=== PATIENT | male | born 1950 | race Caucasian/White ===

== ENCOUNTER 2018-05-08 14:30 | Outpatient (RCR) | payer MEDICARE, BC, SELFPAY ==
--- NOTE | 2018-04-08 14:00 | PTTR_ITS ---
DATE: 04/08/18 SUBJECTIVE: Felix states he has been working on his breathing, thinks he has it under good control. He had complete pain relief in L LE after last seen, but returned to baseline the next day Manual therapy: (74087s0). Bilateral prolonged hip flexor stretching in sidelying positions, L unilateral chest mobilization, prolonged SLR to 50 degrees, L figure 4 stretch with minimal motion achieved before reproducing pain in the L buttock and L supine twist reaching about 45-50 degrees. In R sidelying, complete long roll mobilization grade 4 oscillation, but due to patient's size, it is difficult to perform productive mobilization. with hips and knees at 90/90 complete leg lowering and gapping of the L side. UPA's throughout bilateral lumbar segments grade 4++ allowing for pain alleviation, no peripheral symptoms, STM throughout the L sciatic notch, piriformis, extensor fascia rolo. Neuromuscular Re-education 63826 x1: Diaphragmatic breathing x4 mins, verbal cueing. Hook lying TRA isometric, remarkable verbal and tactile cues required with attempt of progression into glut recruitment, again requiring significant amount of cues, but patient eventually able to get this without over recruitment of rectus abdominals. In standing position: Complete isometric cocontraction of deep neck flexors, lower traps, intrinsics and gluts to encourage proper posture. Patient initially attempts GH extension to achieve lower trap activation. I have him place his hands to anterior thighs to limit his habit of doing this. Therapeutic procedures ([id number]). Prone UE/LE Supermans x10 each extremity, posterior pelvic tilting via glut recruitment following mild rectus abdominal recruitment x20. Cueing throughout for proper movement pattern. Direct treatment time: 60 mins Total treatment time: 60 mins A: Felix has improved his diaphragmatic breathing, certainly has poor body awareness of intrinsics. With cueing, he is able to eventually get a handle on this. I think the more we do this repetitively, and work on his neuro re-ed treatments, he will do this with more ease. Positive response to manual therapy , but not long lasting-it is early in rehab, but I do anticipate negative turner apprentice relief eventually. P: Continue per POC. JH/dl
--- NOTE | 2018-04-10 14:40 | PTTR_ITS ---
DATE: 04/10/18 OBJECTIVE: Co Treatment with PT Celeste Marin Therapeutic procedures (10720p9). * X Provided skilled instruction in proper exercise performance: Pt completed core stabilization ther ex, glute strengthening, and scapular stabilization ther ex as per flow sheet. Pt did require mod tactile and vc's for correction of his posture and mechanics Direct treatment time: 35 Total treatment time: 35
--- NOTE | 2018-04-10 15:48 | PTTR_ITS ---
DATE: 04/10/18 SUBJECTIVE: Felix states that he continues to note improvements, and decreased UE sciatica. It does remain episodic, but not as intense. This morning he noted that he was able to lean down and put his sock on without difficulty. Also noted improved ability to roll around in bed compared to prior days. OBJECTIVE: Manual therapy: (70409b7). Complete (L) prolonged SLR and mulligan SLR, sciatic nerve flossing and SLR mid line cross for sciatic nerve floss. (L) unilateral knee to chest,supine twist and figure 4 stretching for sciatic notch stretch. (R) side lying complete deep tissue work through (L) Sciatic notch, sacral border, glute med and piriformis. In prone, complete unilateral PAs through all lumbar and lower thoracic segments at grade 4++. He is then seen by Vilma Dasilva PTA for therapeutic exercise, intrinsic strengthening per my direction see her note. Direct treatment time: 30 minutes Total treatment time: 30 minutes
--- NOTE | 2018-04-14 12:29 | PTTR_ITS ---
DATE: 04/14/18 SUBJECTIVE: Herb reporting that he has noted a few times pain when ascending stairs leading with the (L) LE and doing this reciprocally really without much pain. He has had moments today where he has been walking one his feet for some time and noted that he hasn't had any discomfort. He feels that he is improving because of these observations. Pain intensity is reduced through the (L) buttock and he is much more aware of his posture. OBJECTIVE: Manual therapy: (33914n0). Prolonged (L) SLR and mulligan SLR oscillations x 10 with mid line cross SLR, sciatic nerve floss x 10. (L) figure 4 and supine twist stretching, (R) side lying log roll mobilization grade 4 oscillations as well as gapping of the (L) lumbar spine with hips and knees at 90/90 position. STM throughout the (L) sacral border and piriformis completing deep trigger points and IASTM down regulation through piriformis and (L) lumbo thoracic paraspinals. He was then seen by Vilma Dasilva PTA for strengthening per my direction see her note for specifics. Direct treatment time: 30 minutes Total treatment time: 30 minutes
--- NOTE | 2018-04-14 15:49 | PTTR_ITS ---
DATE: 04/14/18 OBJECTIVE: Co treatment with PT Celeste Marin Therapeutic procedures ([id number]). * X Provided skilled instruction in proper exercise performance: Pt completed core stabilization ther ex, glute strengthening, and scapular stabilization ther ex. Pt was able to tolerate a slight increase in his program today please see flow sheet for specifics. Direct treatment time: 30 Total treatment time: 30
--- NOTE | 2018-04-16 15:08 | PTTR_ITS ---
DATE: 04/16/18 SUBJECTIVE: Continues to make progress session to session. He reports more centralization of pain today, with discomfort more surrounding the lateral L trochanter, with almost complete resolution of leg pain. Only has leg discomfort when bending forward to put his shoe on. OBJECTIVE: KX applied to all codes N/A Manual therapy: (17120b1). To L LE: Mulligan SLR Prolonged midline and cross body SLR Figure 4 and supine twist stretching In R sidelying complete log roll mobilization grade 4, and prolonged lateral fascia stretch into L trunk rotation UPA's grade 4++ bilateral lumbar segments. He was then seen by Vilma Dasilva PTA for completion of treatment per my direction. Direct treatment time: 20 minutes Total treatment time: 20 minutes
--- NOTE | 2018-04-16 15:46 | PTTR_ITS ---
DATE: 04/16/18 OBJECTIVE: Co Treatment with PT Celeste Marin Manual therapy: (76117p6). Pt while in side lying received DTM and trigger point release techniques throughout the TFL and glute med region. Therapeutic procedures (70342w4). * X Provided skilled instruction in proper exercise performance: Pt completed core stabilization ther ex, glute strengthening, LE strengthening, and functional sit to stands. Pt completed a portion of his session with the wellness with Isaiah Myers Direct treatment time: 30 Total treatment time: 45
--- NOTE | 2018-04-20 14:00 | PTTR_ITS ---
DATE: 04/20/18 SUBJECTIVE: Herb stating he is at least 60% (+) improved since initiating PT. His pain no longer goes into the L leg, but more isolated to L lateral hip. This weekend he ambulated up about 34 steps and did not have discomfort until he got to the top and he was able to do this reciprocally. He continues to have pain when lying on his L side, but now is able to roll over in bed to his R side without difficulty. After leaving his PT appts, he has more muscle soreness due to his exercises that we demand of him vs actual pain. OBJECTIVE: Manual therapy: (30520r0). L LE Mulligan SLR decompression followed by prolonged SLR stretching and sciatic nerve flossing x10. L unilateral knee to chest, figure 4 and supine twist mobilization, R sidelying log roll decompression to L lumbar spine, grade 4 oscillations as well as 90/90 leg dropping over the edge of the plinth for decompression. STM throughout the L TFL where most of amount of adhesions and tension was appreciated to the attachment of the posterior hip capsule. Therapeutic procedures (06151r1). * x See flow sheet: * x Provided skilled instruction in proper exercise performance: intrinsic movement performance and progression of exercises. Direct treatment time: 60 mins Total treatment time: 60 mins JH/dl
--- NOTE | 2018-04-22 11:29 | PTTR_ITS ---
DATE: 04/22/18 SUBJECTIVE: Herb states he has essentially had no left sided sciatica or hip pain since last being seen until yesterday evening. Otherwise, he continues to state he is doing well. OBJECTIVE: Manual therapy: (53236a8). Completed left Mulligan SLR, prolonged SLR, left unilateral knee to chest, figure 4 in supine twist stretching, right side lying log roll mobilization for decompression of the left sided lumbar spine in 90/90 leg drop for decompression of the left sided lumber spine. UPAs to the left and right sided lumbar spine at a Grade 4 + +, but with remarkable limitations noted. STM throughout the right TFL where the he the most tension appreciated. Direct treatment time: 30 minutes Total treatment time: 30 minutes Therapeutic exercises were deferred today due to patient's scheduled restrictions. XIMENA/yovani
--- NOTE | 2018-04-28 14:30 | PTTR_ITS ---
DATE: 04/28/18 SUBJECTIVE: Felix stating he has been having no leg pain. His back overall has been feeling very good, unless he stands after prolonged sitting, he has some buttock discomfort which he relates more to muscle pain from his exercises. Once he takes 2-3 steps, this dissipates. Manual therapy: (12972x0). Prolonged L SLR with Mulligan distraction, cross body SLR, sciatic nerve floss x10. Figure 4 and supine twist mobilization with remarkable improvement in mobility compared to prior sessions without pain. R sidelying lumbar facet gapping via leg drop at 90/90 position as well as log roll mobilization,UPA's all lumbar segments. Therapeutic procedures ([id number]). * x See flow sheet: * x Provided skilled instruction in proper exercise performance: glut and intrinsic core activation, modifications made throughout to attend to patient's lack of upper body extension and deep neck flexor activation. He continues with this with Vilma Dasilva PTA (see her note for specifics) Direct treatment time: 30 mins Total treatment time: 30 mins A: Felix's pain has dissipated, however he continues to demonstrate remarkable amount of posterior swing and longitudinal swing fascial weakness. He can barely lift either arm off the table into full shoulder flexion or lift his head off a towel roll. Exercises were modified to allow for best activation in muscle structures as possible. I am hopeful as we get his posterior muscles working better, will get him to stand up better putting less strain through his back. Of course, this is going to take some time due to the remarkable amount of weakness that he has. P: Proceed 2x a week with primary focus of Therex at this point with posterior strengthening and intrinsic concentration. XIMENA/jaylon
--- NOTE | 2018-04-28 15:24 | PTTR_ITS ---
DATE: 04/28/18 OBJECTIVE: Co Treatment with PT Celeste Marin Therapeutic procedures ([id number]). * X Provided skilled instruction in proper exercise performance: Pt completed core stabilization ther ex, glute strengthening, scapular stabilization, and strengthening to the lower trap. Direct treatment time: 20 Total treatment time: 20
--- NOTE | 2018-04-30 14:30 | PTTR_ITS ---
DATE: 04/30/18 SUBJECTIVE: Herb stating that he has been having some slight increase in discomfort from his lateral L hip, down lateral L thigh. He feels not having soft tissue mobilization performed last visit may have contributed to this, otherwise he has been much more aware of his posture at all times. He really does struggle to try and stand up straight and he is now acknowledging how weak he is and he is surprised at how weak he is. He is denying any back pain and while he is experiencing some L leg pain, it is not nearly as severe or frequent as it once was. Manual therapy: ([id number]). L prolonged SLR with Mulligan distraction, cross body SLR, figure 4 and supine twist mobilization. L sciatic nerve floss x10. Extensive STM down L lateral thigh fascia utilizing instrument for down regulation as well as down regulation into L sacral musculature and sacral musculature and sacral border with deep tissue work through the sciatic notch. He is then seen by Vilma Dasilva PTA for Therex per my instruction. (see her note for specifics) Direct treatment time: 30 mins Total treatment time: 30 mins XIMENA/dl
--- NOTE | 2018-04-30 15:00 | PTTR_ITS ---
DATE: 04/30/18 Co-treat with ARNIE Hager (see her note) Therapeutic procedures ([id number]). consisting of scap stabilization, Lower trap activation as well as core stabilization, glut strengthening activities per flow sheet. Direct treatment time: 20 mins Total treatment time: 20 mins /dl
--- NOTE | 2018-05-06 08:50 | PTTR_ITS ---
DATE: 05/06/18 SUBJECTIVE: Walked around [place] fair over the weekend, really without any pain. Complained of general fatigue, but that was expected. He has some discomfort local to the L buttock, but no isolated back pain or L LE discomfort. 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 He is aware of his posture, and core weakness, and is finding it challenging and tiring to remain in good posture and core use. OBJECTIVE: KX applied to all codes N/A Manual therapy: (39409s5). Prolonged L SLR, and cross SLR. Sciatic nerve floss L LE x 10 L U KTC, supine twist, and figure 4 stretch STM L sciatic notch Therapeutic procedures (69165b0). Observe patient talking with me alternating between the two compensatory static stances: 1. Knees bent, to rock upper body back. 2. Forward bent at the hips and shoulder protrusion/forward head. He remains in each position gto about 10 seconds, and then essentially rocks into the next position. This leads me into the followin.Reviewed standing intrinsic activation. Hands on anterior thighs to avoid shoulder extension. Verbal cues and manual facilitation for TrA, glute, lower trap, and deep neck flexor activation. 10 sec holds x 10. 2. Stand facing wall, arms overhead into shoulder flexion. Arm lift off x 10. Leg extension x 10. These two exercises require a great deal of instruction and cueing for proper muscle facilitation. He tend continues [facility] Vilma Dasilva PTA for ther ex per my direction, see her note. Direct treatment time: 30 minutes Total treatment time: 30 minutes Assessment: Felix is much improved in regards to his comfort, now dealing with some residual L buttock pain. He presents with soft tissue dysfunction through the sciatic notch, and even some tension up through the lumbar paraspinals, and iliac brim today. This soft tissue impairment is likely secondary to his lumbar nerve root compromise, and arthritic condition. Anticipate this will continue to improve as we continue decompression L lumbar spine and manipulation surrounding soft tissue via mobilization and STM. His strength remains very poor , particularly in regard to his intrinsic and postural stability. Without great attention paid to his lack of intrinsic and spinal stability, his lumbar spine and associated structures will continue to suffer trauma and strain. While he has improved [facility] manual treatments, it will only be short lived without continued efforts focused on his stabilization, particularly of the posterior and longitudinal fascial slings, where he demonstrates greatest deficit. Plan: STM L sciatic notch, and L lumbar decompression mobilization techniques. Progress intrinsic stabilization, with focus as discussed above, per patient tolerance. 2x/week.
--- NOTE | 2018-05-06 15:41 | PTTR_ITS ---
DATE: 05/05/18 OBJECTIVE: Co Treatment with PT Celeste Marin Therapeutic procedures ([id number]). * X Provided skilled instruction in proper exercise performance: Pt completed core stabilization ther ex, glute strengthening, scapular stabilization ther ex, and strengthening to the lower trap. Pt was able to tolerate a slight increase in his program today. Pt requires tactile and vc's for correction of his posture and mechanics. Direct treatment time: 30 Total treatment time: 30
--- NOTE | 2018-05-08 15:25 | PTTR_ITS ---
DATE: 05/08/18 OBJECTIVE: Manual therapy: (67123w2). Pt received DTM and trigger point release techniques throughout the glute med and piriformis while in the side lying and prone positions. Therapeutic procedures ([id number]). * X Provided skilled instruction in proper exercise performance: Pt completed core stabilization ther ex, glute strengthening, scapular stabilization, and cervical retraction exercises as per flow sheet. Pt was able to tolerate a slight increase in his program today. Pt did require mod vc's and tactile cueing for correction of his posture and mechanics. Pt also utilized the mirror for his own visual cueing. Direct treatment time: 45 Total treatment time: 45
== END 2018-05-08 23:59 | disposition home or self-care (01) ==
LOC: PT 14:30
PROVIDERS: PCP Family Medicine; Referring Provider Family Medicine; Visit Provider Family Medicine
DX: S76.012D Strain of muscle, fascia and tendon of left hip, subsequent encounter (principal)
CPT/HCPCS: 97110; 97112; 97140

== ENCOUNTER → 2018-07-02 10:09 | Outpatient (BNVA) | payer MEDICARE, BC, SELFPAY | PROVIDERS: PCP Family Medicine; Referring Provider Family Medicine; Visit Provider Orthopaedic Surgery | DX: M70.62 Trochanteric bursitis, left hip (principal) | CPT/HCPCS: 20610; 99201; 99214; J1040 ==

== ENCOUNTER 2018-10-06 16:17 | Outpatient (CLI) | payer MEDICARE, BC, SELFPAY ==
[2018-10-06 16:46] LABS: Abs Immature Grans 0.02 k/cumm (0.0-0.09); Absolute Basophil Count 0.02 k/cumm (0.0-0.2); Absolute Eosinophil Count 0.11 k/cumm (0.0-0.7); Absolute Lymphocyte Count 1.82 k/cumm (1.2-3.4); Absolute Monocyte Count 0.53 k/cumm (0.11-0.7); Absolute Neutrophil Count 3.57 k/cumm (1.2-6.7); Basophils % 0.3; Eosinophils % 1.8; HCT 43.8 % (40.0-50.0); Immature Grans % 0.3; Mean Corp. HGB Concentration 34.2 g/dL (32.0-36.0); Mean Corpuscular Hemoglobin 32.8 pg (27.0-33.0); Mean Corpuscular Volume 95.8 fL (80-95); Monocytes % 8.7; Neutrophils % 58.9; Platelet Count 173 x1000/uL (130-400); RBC 4.57 m/cumm (4.50-6.00); RBC Distribution Width 12.6 % (11.8-14.1); White Blood Cell Count 6.07 k/cumm (4.4-10.8)
[2018-10-06 17:01] LABS: ALT 42 U/L (12-78); AST 25 U/L (15-37); Albumin 3.6 g/dL (3.4-5.0); Alkaline Phosphatase 122 U/L (46-116); Anion Gap 10.1 mmol/L (3-11); BUN 23 mg/dL (7-18); Bilirubin, Total 0.4 mg/dL (0.2-1.0); CO2 25.9 mmol/L (21.0-32.0); CREATININE 0.91 mg/dL (0.70-1.30); Calcium 8.8 mg/dL (8.5-10.1); Chloride 105 mmol/L (98-107); Glucose 106 mg/dL (70-100); LDH 208 U/L (85-227); Potassium 4.1 mmol/L (3.5-5.1); Sodium 141 mmol/L (136-145); Total Protein 7.4 g/dL (6.4-8.2)
== END 2018-10-06 16:37 ==
PROVIDERS: PCP Family Medicine; Visit Provider Internal Medicine Hematology & Oncology
DX: C82.21 Follicular lymphoma grade III, unspecified, lymph nodes of head, face, and neck (principal)
CPT/HCPCS: 36415; 80053; 83615; 85025

== ENCOUNTER 2018-10-28 12:02 | Outpatient (CLI) | payer MEDICARE, BC, SELFPAY ==
[2018-10-28 19:42] LABS: ALT 41 U/L (12-78); AST 29 U/L (15-37); Albumin 3.4 g/dL (3.4-5.0); Alkaline Phosphatase 120 U/L (46-116); Anion Gap 8.4 mmol/L (3-11); BUN 17 mg/dL (7-18); Bilirubin, Total 0.4 mg/dL (0.2-1.0); CO2 26.6 mmol/L (21.0-32.0); CREATININE 0.93 mg/dL (0.70-1.30); Calcium 8.9 mg/dL (8.5-10.1); Chloride 105 mmol/L (98-107); Glucose 103 mg/dL (70-100); Sodium 140 mmol/L (136-145); TSH (W/Ref FT4) 1.13 uIU/mL (0.358-3.74); Total Protein 6.6 g/dL (6.4-8.2); Vitamin B12 715 pg/mL (193-986)
== END 2018-10-28 12:22 ==
PROVIDERS: PCP Family Medicine; Visit Provider Family Medicine
DX: C85.90 Non-Hodgkin lymphoma, unspecified, unspecified site (principal); R20.2 Paresthesia of skin; M79.642 Pain in left hand
CPT/HCPCS: 36415; 80053; 80061; 83721; 73130; 82607; 83036; 84443

== ENCOUNTER 2018-10-28 13:39 | Outpatient (CLI) | payer MEDICARE, BC, SELFPAY ==
--- NOTE | 2018-10-28 15:42 | DI.RAD_ITS ---
SYMPTOM/DIAGNOSIS: LT HAND PAIN, M79.642 LEFT HAND: Three views. There are mild degenerative changes seen of the left hand with varying degrees of joint space narrowing and periarticular spurring in the interphalangeal joints of the hand. The metacarpal phalangeal joints appear fairly well maintained. No acute fracture, dislocation, lytic or sclerotic lesion is seen. A marker was placed on the soft tissues on the dorsum of the hand. No underlying osseous abnormality is seen. IMPRESSION: Osteoarthritis of the left hand.
== END 2018-10-28 13:59 ==
PROVIDERS: PCP Family Medicine; Visit Provider Family Medicine
DX: M79.642 Pain in left hand (principal); M19.042 Primary osteoarthritis, left hand
CPT/HCPCS: 73130

== ENCOUNTER 2019-04-08 07:15 | Outpatient (CLI) | payer MEDICARE, BC, SELFPAY ==
[2019-04-08 16:26] LABS: Abs Immature Grans 0.01 k/cumm (0.0-0.09); Absolute Basophil Count 0.02 k/cumm (0.0-0.2); Absolute Eosinophil Count 0.15 k/cumm (0.0-0.7); Absolute Lymphocyte Count 2.07 k/cumm (1.2-3.4); Absolute Monocyte Count 0.54 k/cumm (0.11-0.7); Absolute Neutrophil Count 2.98 k/cumm (1.2-6.7); Basophils % 0.3; Eosinophils % 2.6; HCT 39.9 % (40.0-50.0); HGB 13.8 g/dL (13.5-17.5); Immature Grans % 0.2; Lymphocytes % 35.9; Mean Corp. HGB Concentration 34.6 g/dL (32.0-36.0); Mean Corpuscular Hemoglobin 32.3 pg (27.0-33.0); Mean Corpuscular Volume 93.4 fL (80-95); Mean Platelet Volume 9.3 fL (8.0-11.0); Monocytes % 9.4; Neutrophils % 51.6; Platelet Count 170 x1000/uL (130-400); RBC 4.27 m/cumm (4.50-6.00); RBC Distribution Width 12.4 % (11.8-14.1); White Blood Cell Count 5.77 k/cumm (4.4-10.8)
[2019-04-08 18:01] LABS: ALT 45 U/L (12-78); AST 24 U/L (15-37); Albumin 3.6 g/dL (3.4-5.0); Alkaline Phosphatase 119 U/L (46-116); Anion Gap 8.8 mmol/L (3-11); BUN 16 mg/dL (7-18); Bilirubin, Total 0.4 mg/dL (0.2-1.0); CO2 25.2 mmol/L (21.0-32.0); CREATININE 0.95 mg/dL (0.70-1.30); Calcium 8.9 mg/dL (8.5-10.1); Chloride 108 mmol/L (98-107); Glucose 103 mg/dL (70-100); LDH 233 U/L (85-227); Potassium 3.6 mmol/L (3.5-5.1); Sodium 142 mmol/L (136-145); Total Protein 6.8 g/dL (6.4-8.2)
== END 2019-04-08 07:35 ==
PROVIDERS: PCP Family Medicine; Visit Provider Internal Medicine Hematology & Oncology
DX: C82.20 Follicular lymphoma grade III, unspecified, unspecified site (principal)
CPT/HCPCS: 36415; 80053; 83615; 85025

== ENCOUNTER 2019-04-26 16:27 | Outpatient (REF) | payer MEDICARE, BC, SELFPAY ==
[2019-04-26 19:09] LABS: Bilirubin Negative (Negative); Blood Small (Negative); Clarity Cloudy (Clear); Glucose Negative (Negative); Ketones Negative (Negative); Leukocyte Esterase Large (Negative); Nitrite Negative (Negative); Urobilinogen 0.2 EU/dL (Up TO 0.2)
[2019-04-26 19:21] LABS: C & S Indicated? Yes; WBC >50 HPF (0-5)
== END 2019-04-26 16:47 ==
LOC: LBN 16:27
PROVIDERS: PCP Family Medicine; Visit Provider Family Medicine
DX: R35.0 Frequency of micturition (principal)
CPT/HCPCS: 87077; 81003; 81015; 87086; 87186

== ENCOUNTER 2019-06-07 18:43 | Outpatient (REF) | payer MEDICARE, BC, SELFPAY ==
[2019-06-07 19:13] LABS: Bilirubin Negative (Negative); Blood Trace-intact (Negative); Clarity Cloudy (Clear); Glucose Negative (Negative); Ketones Negative (Negative); Leukocyte Esterase Large (Negative); Nitrite Positive (Negative); Specific Gravity 1.015 (1.005-1.025); Urobilinogen 0.2 EU/dL (Up TO 0.2); pH 6.5 (5-8)
[2019-06-07 19:29] LABS: Bacteria Many HPF (Negative); Epithelial Cells Rare HPF (Negative); Other Cells Rare Renal (Negative); WBC >50 HPF (0-5)
[2019-06-07 19:30] LABS: C & S Indicated? Yes; Casts Negative LPF (Negative); Crystals Negative HPF (Negative); Mucus Negative (Negative)
== END 2019-06-07 19:03 ==
LOC: LBN 18:43
PROVIDERS: PCP Family Medicine; Visit Provider Family Medicine
DX: R35.0 Frequency of micturition (principal); R82.90 Unspecified abnormal findings in urine
CPT/HCPCS: 87077; 81003; 81015; 87086; 87186

== ENCOUNTER 2019-06-14 10:32 | Outpatient (CLI) | payer MEDICARE, BC, SELFPAY ==
[2019-06-14 16:15] LABS: Abs Immature Grans 0.02 k/cumm (0.0-0.09); Absolute Basophil Count 0.02 k/cumm (0.0-0.2); Absolute Eosinophil Count 0.11 k/cumm (0.0-0.7); Absolute Monocyte Count 0.53 k/cumm (0.11-0.7); Absolute Neutrophil Count 3.81 k/cumm (1.2-6.7); Basophils % 0.3; Eosinophils % 1.7; HCT 39.6 % (40.0-50.0); HGB 13.2 g/dL (13.5-17.5); Immature Grans % 0.3; Lymphocytes % 28.6; Mean Corp. HGB Concentration 33.3 g/dL (32.0-36.0); Mean Corpuscular Hemoglobin 31.9 pg (27.0-33.0); Mean Corpuscular Volume 95.7 fL (80-95); Monocytes % 8.4; Neutrophils % 60.7; Platelet Count 210 x1000/uL (130-400); RBC 4.14 m/cumm (4.50-6.00); RBC Distribution Width 12.9 % (11.8-14.1); White Blood Cell Count 6.29 k/cumm (4.4-10.8)
[2019-06-14 18:05] LABS: ALT 40 U/L (16-63); AST 27 U/L (15-37); Albumin 3.6 g/dL (3.4-5.0); Alkaline Phosphatase 110 U/L (46-116); Anion Gap 8.1 mmol/L (3-11); BUN 17 mg/dL (7-18); Bilirubin, Total 0.4 mg/dL (0.2-1.0); CO2 27.9 mmol/L (21.0-32.0); CREATININE 1.01 mg/dL (0.70-1.30); Calcium 8.3 mg/dL (8.5-10.1); Chloride 104 mmol/L (98-107); Glucose 94 mg/dL (70-100); LDH 229 U/L (85-227); Sodium 140 mmol/L (136-145)
== END 2019-06-14 10:52 ==
PROVIDERS: PCP Family Medicine; Visit Provider Internal Medicine Hematology & Oncology
DX: C82.20 Follicular lymphoma grade III, unspecified, unspecified site (principal)
CPT/HCPCS: 36415; 80053; 83615; 85025

== ENCOUNTER 2019-06-17 13:16 | Outpatient (CLI) | payer MEDICARE, BC, SELFPAY ==
[2019-06-17 16:35] LABS: Reticulocyte 1.9 % (0.5-2.4)
[2019-06-17 17:27] LABS: Iron 80 ug/dL (50-175); Total Iron Binding Capacity 273 ug/dL (250-450); Transferrin Sat 29 % (20-55)
[2019-06-17 17:55] LABS: Ferritin 373 ng/mL (8-388); Vitamin B12 659 pg/mL (193-986)
== END 2019-06-17 13:36 ==
PROVIDERS: PCP Family Medicine; Visit Provider Internal Medicine Hematology & Oncology
DX: R53.83 Other fatigue (principal); D53.9 Nutritional anemia, unspecified
CPT/HCPCS: 36415; 82607; 82728; 82746; 83540; 83550; 84443; 85045

== ENCOUNTER 2019-08-11 10:47 | Outpatient (CLI) | payer MEDICARE, BC, SELFPAY | END 2019-08-11 11:07 | PROVIDERS: PCP Family Medicine; Visit Provider Urology | DX: R97.20 Elevated prostate specific antigen [PSA] (principal); N39.0 Urinary tract infection, site not specified | CPT/HCPCS: 36415; 84154 ==

== ENCOUNTER 2019-08-24 10:36 | Outpatient (CLI) | payer MEDICARE, BC, SELFPAY ==
[2019-08-24 12:11] LABS: Abs Immature Grans 0.01 k/cumm (0.0-0.09); Absolute Basophil Count 0.02 k/cumm (0.0-0.2); Absolute Eosinophil Count 0.07 k/cumm (0.0-0.7); Absolute Lymphocyte Count 1.58 k/cumm (1.2-3.4); Absolute Monocyte Count 0.56 k/cumm (0.11-0.7); Absolute Neutrophil Count 3.78 k/cumm (1.2-6.7); Basophils % 0.3; Eosinophils % 1.2; HCT 40.8 % (40.0-50.0); HGB 13.7 g/dL (13.5-17.5); Immature Grans % 0.2; Lymphocytes % 26.2; Mean Corp. HGB Concentration 33.6 g/dL (32.0-36.0); Mean Corpuscular Hemoglobin 32.1 pg (27.0-33.0); Mean Corpuscular Volume 95.6 fL (80-95); Mean Platelet Volume 9.7 fL (8.0-11.0); Monocytes % 9.3; Neutrophils % 62.8; Platelet Count 183 x1000/uL (130-400); RBC 4.27 m/cumm (4.50-6.00); RBC Distribution Width 12.9 % (11.8-14.1); White Blood Cell Count 6.02 k/cumm (4.4-10.8)
[2019-08-24 12:13] LABS: ALT 48 U/L (16-63); AST 34 U/L (15-37); Albumin 3.4 g/dL (3.4-5.0); Alkaline Phosphatase 101 U/L (46-116); Anion Gap 8.8 mmol/L (3-11); BUN 19 mg/dL (7-18); Bilirubin, Total 0.7 mg/dL (0.2-1.0); CO2 26.2 mmol/L (21.0-32.0); CREATININE 0.86 mg/dL (0.70-1.30); Calcium 8.6 mg/dL (8.5-10.1); Chloride 106 mmol/L (98-107); Glucose 106 mg/dL (74-106); LDH 234 U/L (85-227); Potassium 3.7 mmol/L (3.5-5.1); Sodium 141 mmol/L (136-145); Total Protein 6.9 g/dL (6.4-8.2)
== END 2019-08-24 10:56 ==
PROVIDERS: PCP Family Medicine; Visit Provider Internal Medicine Hematology & Oncology
DX: C82.30 Follicular lymphoma grade IIIa, unspecified site (principal); D53.9 Nutritional anemia, unspecified
CPT/HCPCS: 36415; 80053; 83615; 85025

== ENCOUNTER 2019-09-16 02:18 | Outpatient (CLI) | payer MEDICARE, BC, SELFPAY ==
--- NOTE | 2019-09-16 07:30 | DI.US_ITS ---
APPROVED REPORT EXAM: Comprehensive 2D, Doppler, and color-flow Echocardiogram Patient Location: Out-Patient Horser Up: Radha Hilario RDCS (AE) Rhythm: NSR Indications: shortness of breath R06.02 Conclusion Left Ventricle : The left ventricle is normal size. Left ventricular systolic function is normal. Mil d to moderate left ventricular hypertrophy. There is normal LV segmental wall motion. The left ventr icular diastolic function is normal. LVEF is estimated to be 65-70%. Right Ventricle : The right ventricle is normal size. The right ventricular systolic function appears normal. Atria : The left atrium size is normal. The right atrium size is normal. Aortic Valve : The Aortic valve is sclerotic. There is no aortic valvular stenosis. No aortic regurgi tation is present. Mitral Valve : Mitral valve leaflets are mildly thickened. Trace mitral regurgitation. No evidence of mitral valve stenosis. Tricuspid Valve : The tricuspid valve is not well visualized. Trace to mild tricuspid regurgitation. Great Vessels : The ascending aorta size is dilated 3.8cm). IVC is normal in size and collapses >50% with inspiration. Estimated RVSP is 30-35 mmHg. There is no prior echocardiogram available for comparison. Wall motion Left Ventricle The left ventricle is normal size. Left ventricular systolic function is normal. Mild to moderate lef t ventricular hypertrophy. There is normal LV segmental wall motion. The left ventricular diastolic f unction is normal. LVEF is estimated to be 65-70%. Right Ventricle The right ventricle is normal size. The right ventricular systolic function appears normal. Atria The left atrium size is normal. The right atrium size is normal. Aortic Valve The Aortic valve is sclerotic. There is no aortic valvular stenosis. No aortic regurgitation is prese nt. Mitral Valve Mitral valve leaflets are mildly thickened. No evidence of mitral valve stenosis. Trace mitral regurg itation. Tricuspid Valve The tricuspid valve is not well visualized. Trace to mild tricuspid regurgitation. Great Vessels The aortic root is normal in size. The ascending aorta size is dilated 3.8cm). IVC is normal in size and collapses >50% with inspiration. Estimated RVSP is 30-35 mmHg. Pericardium Prominent anterior epicardial fat pad is present. 2D Dimensions IVSd 1.25 cm M: 0.6-1.2 LV EDV A2C 66.40 mL PWd 1.25 cm M: 0.6 - 1.2 LV EDV A4C 93.30 mL LVDd 4.60 cm M: 4.2 - 5.8 LA Volume Index A2C 17.62 mL/m2 LVDs 2.80 cm M: 2.5 - 4.0 LA Volume Index A4C 22.17 mL/m2 Aortic Root 3.70 cm M: 3.1 - 3.7 LA Volume Index Biplane 19.92 mL/m2 RA Area A4C 12.82 cm2 LA Area A4C 18.32 cm2 LVOT 2.25 cm (M/F) 1.5-2.5 LA Area A2C 16.20 cm2 Ascending Aorta 3.79 cm M: 2.6 - 3.4 EF AP4 63.02 % LVEF (Teich) 68.49 % EF AP2 71.84 % LVEF (Greene's) 67.33 % M: 52 - 72 EF BP 67.33 % LV Volume 57.43 mL M: 62 - 150 LV Volume Index 24.75 mL/m2 M: 34 - 74 FS 38.20 % LV Diastology E/A Ratio 0.8 MED E' 0.05 (>0.07 m/s) LV E/e MED 11.05 (<14) LAT E' 0.10 (>0.1 m/s) LV E/e LAT 5.50 (<14) Pulm Vein s 0.50 m/s PV S/D Ratio 1.22 Pulm Vein d 0.41 m/s Pulm Vein a 0.36 m/s A-A Duration 151.94 msec Aortic Valve LVOT Area 4.08 cm2 LVOT Vmax 0.94 m/s LVOT Mean Hector. 0.70 m/s LVOT Peak Gr. 3.5 mmHg LVOT Mean Gr. 2.1 mmHg AoV Area/ BSA (Vmax) 0.87 cm2/m2 LVOT VTI 0.167 m AoV Vmax 1.91 (0.5-1.3 m/s) SATHISH Mean Hector. Index 0.89 cm2/m2 AoV Mean Hector. 1.37 m/s AoV Peak Grad 14.5 mmHg AoV Mean Grad 8.3 (<5 mmHg) AoV VTI 0.355 (0.18-0.25 m) AoV Area VTI 2.06 (2.5-4.5 cm2) AoV Area/ BSA (VTI) 0.89 cm/m2 Mitral Valve MV E Max Hector. 0.55 (0.4-1.3 m/s) MV A Velocity 0.65 (0.4-1.3 m/s) E/A Ratio 0.81 MV Decel. Time 269.30 (160-240 msec) MV PHT 78.10 msec MVA PHT 2.80 cm2 Pulmonary Valve PV Peak Velocity 1.12 (0.5-1.5 m/s) Tricuspid Valve TR P. Velocity 2.74 m/s TV Regurg Vmax 2.74 m/s RAP Estimate 3.00 mmHg RVSP 32.98 mmHg TR P. Gradient 29.95 mmHg
== END 2019-09-16 02:38 ==
PROVIDERS: PCP Family Medicine; Visit Provider Family Medicine
DX: R06.02 Shortness of breath (principal); I34.8 Other nonrheumatic mitral valve disorders; I35.8 Other nonrheumatic aortic valve disorders
CPT/HCPCS: 93306

== ENCOUNTER 2019-09-24 02:17 | Outpatient (CLI) | payer MEDICARE, BC, SELFPAY ==
[2019-09-24] MEDS: Albuterol HFA 18 GM 200 PUFF INH IH (13:53)
[2019-09-24] MEDS: Inhaler, Assist Device 1 EACH MC (13:53)
--- NOTE | 2019-09-24 14:47 | PFT_ITS ---
PULMONARY FUNCTION TEST REPORT DATE OF SERVICE: September 24, 2019 REQUESTING PROVIDER: Olga Curtis M.D. Spirometry shows no evidence of obstructive airways disease, no bronchodilator response. Lung volumes show no evidence of restriction. Diffusion capacity borderline mildly reduced, which is normal when corrected to alveolar volume. This also represents a slightly suboptimal patient effort. Airways resistance normal. IMPRESSION: Overall likely normal pulmonary function study. The borderline mildly reduced diffusion capacity represents a suboptimal patient effort. This is normal when corrected to alveolar volume. When this study was compared to previous ones from 12/15/07 and 11/01/10, the patient has an overall 300 cc decline in FVC, but considering that in 2010 there was an improvement, from that time on there?s a 500 cc decline in FVC. In FEV1 there is a gradual decline with a total of 410 cc's. Clinical correlation therefore recommended. GABRIEL/kandace D/
== END 2019-09-24 02:37 ==
PROVIDERS: PCP Family Medicine; Visit Provider Family Medicine
DX: R06.02 Shortness of breath (principal)
CPT/HCPCS: 94060; 94150; 94726; 94729

== ENCOUNTER 2019-10-14 18:30 | Outpatient (REF) | payer MEDICARE, BC, SELFPAY ==
[2019-10-14 19:12] LABS: Bilirubin Negative (Negative); Blood Trace-intact (Negative); Clarity Cloudy (Clear); Glucose Negative (Negative); Ketones Negative (Negative); Leukocyte Esterase Large (Negative); Nitrite Positive (Negative); Urobilinogen 0.2 EU/dL (Up TO 0.2)
[2019-10-14 19:26] LABS: Bacteria Many HPF (Negative); C & S Indicated? Yes; Casts Negative LPF (Negative); Crystals Negative HPF (Negative); Epithelial Cells Negative HPF (Negative); Mucus Negative (Negative); RBC Negative HPF (0-2); WBC >50 HPF (0-5)
== END 2019-10-14 18:50 ==
LOC: LBN 18:30
PROVIDERS: PCP Family Medicine; Visit Provider Family Medicine
DX: R35.0 Frequency of micturition (principal)
CPT/HCPCS: 87077; 81003; 81015; 87086; 87186

== ENCOUNTER 2019-12-15 13:38 | Outpatient (REF) | payer MEDICARE, BC, SELFPAY ==
[2019-12-15 13:57] LABS: Bilirubin Negative (Negative); Blood Negative (Negative); Clarity Cloudy (Clear); Glucose Negative (Negative); Ketones Negative (Negative); Leukocyte Esterase Large (Negative); Nitrite Negative (Negative); Specific Gravity 1.025 (1.005-1.025); Urobilinogen 0.2 EU/dL (Up TO 0.2)
[2019-12-15 14:21] LABS: Bacteria Many HPF (Negative); C & S Indicated? Yes; WBC >50 HPF (0-5)
== END 2019-12-15 13:58 ==
LOC: LBN 13:38
PROVIDERS: PCP Family Medicine; Visit Provider Family Medicine
DX: N39.0 Urinary tract infection, site not specified (principal)
CPT/HCPCS: 87077; 81003; 81015; 87086; 87186

== ENCOUNTER 2020-01-29 10:51 | Outpatient (REF) | payer MEDICARE, BC, SELFPAY ==
[2020-01-29 11:12] LABS: Bilirubin Negative (Negative); Blood Trace-intact (Negative); Clarity Sl Cloudy (Clear); Glucose Negative (Negative); Ketones Negative (Negative); Leukocyte Esterase Moderate (Negative); Nitrite Positive (Negative); Specific Gravity >= 1.030 (1.005-1.025); Urobilinogen 0.2 EU/dL (Up TO 0.2); pH 5.5 (5-8)
[2020-01-29 11:24] LABS: Bacteria Moderate HPF (Negative); C & S Indicated? Yes; Casts Negative LPF (Negative); Crystals Negative HPF (Negative); Epithelial Cells Few HPF (Negative); Mucus Trace (Negative); Other Cells Negative (Negative); WBC >50 HPF (0-5)
== END 2020-01-29 11:11 ==
LOC: LBN 10:51
PROVIDERS: PCP Family Medicine; Visit Provider Family Medicine
DX: N39.0 Urinary tract infection, site not specified (principal); R30.0 Dysuria
CPT/HCPCS: 87077; 81003; 81015; 87086; 87186

== ENCOUNTER 2020-02-09 21:37 | Outpatient (REF) | payer MEDICARE, BC, SELFPAY ==
[2020-02-09 21:06] LABS: Bilirubin Negative (Negative); Blood Trace-intact (Negative); Clarity Sl Cloudy (Clear); Glucose Negative (Negative); Ketones Negative (Negative); Leukocyte Esterase Moderate (Negative); Nitrite Negative (Negative); Specific Gravity 1.025 (1.005-1.025); Urobilinogen 0.2 EU/dL (Up TO 0.2)
[2020-02-09 21:16] LABS: C & S Indicated? Yes
== END 2020-02-09 21:57 ==
LOC: LBN 21:37
PROVIDERS: PCP Family Medicine; Visit Provider Family Medicine
DX: R30.0 Dysuria (principal)
CPT/HCPCS: 87077; 81003; 81015; 87086; 87186

== ENCOUNTER 2020-04-28 14:29 | Outpatient (CLI) | payer MEDICARE, BC, SELFPAY ==
[2020-04-28 14:44] LABS: Abs Immature Grans 0.01 10^3/uL (0.0-0.06); Absolute Basophil Count 0.02 10^3/uL (0.0-0.2); Absolute Eosinophil Count 0.16 10^3/uL (0.0-0.7); Absolute Lymphocyte Count 1.82 10^3/uL (1.2-3.4); Absolute Monocyte Count 0.56 10^3/uL (0.1-0.8); Absolute Neutrophil Count 3.13 10^3/uL (1.2-6.7); Basophils % 0.4; Eosinophils % 2.8; HCT 40.3 % (40.0-50.0); HGB 13.9 g/dL (13.5-17.5); Immature Grans % 0.2; Lymphocytes % 31.9; MCH 32.8 pg (27.0-33.0); MCHC 34.5 % (32.0-36.0); MPV 9.5 fL (8.0-11.0); Monocytes % 9.8; Neutrophils % 54.9; Nucleated RBC 0 %; Platelet Count 159 10^3/uL (130-400); RBC 4.24 10^6/uL (4.36-5.78); RDW 12.4 % (11.8-14.1); RDW-SD 42.8 fL
[2020-04-28 15:04] LABS: ALT 44 U/L (16-63); AST 25 U/L (15-37); Albumin 3.3 g/dL (3.4-5.0); Alkaline Phosphatase 92 U/L (46-116); Anion Gap 9.3 mmol/L (3-11); BUN 16 mg/dL (7-18); Bilirubin, Total 0.6 mg/dL (0.2-1.0); CO2 24.7 mmol/L (21.0-32.0); CREATININE 0.92 mg/dL (0.70-1.30); Calcium 8.4 mg/dL (8.5-10.1); Chloride 104 mmol/L (98-107); Glucose 129 mg/dL (74-106); LDH 199 U/L (85-227); Potassium 3.7 mmol/L (3.5-5.1); Sodium 138 mmol/L (136-145); Total Protein 6.7 g/dL (6.4-8.2)
== END 2020-04-28 14:49 ==
PROVIDERS: PCP Family Medicine; Visit Provider Internal Medicine Hematology & Oncology
DX: C82.20 Follicular lymphoma grade III, unspecified, unspecified site (principal)
CPT/HCPCS: 36415; 80053; 83615; 85025

== ENCOUNTER 2020-05-01 21:15 | Outpatient (REF) | payer MEDICARE, BC, SELFPAY ==
[2020-05-01 22:23] LABS: Bilirubin Negative (Negative); Blood Negative (Negative); Clarity Sl Cloudy (Clear); Glucose Negative (Negative); Ketones Negative (Negative); Leukocyte Esterase Negative (Negative); Nitrite Positive (Negative); Specific Gravity >= 1.030 (1.005-1.025); Urobilinogen 0.2 EU/dL (Up TO 0.2)
[2020-05-01 22:38] LABS: Bacteria Many HPF (Negative); C & S Indicated? Yes; Casts Negative LPF (Negative); Crystals Negative HPF (Negative); Epithelial Cells Rare HPF (Negative); Mucus Negative (Negative); Other Cells Negative (Negative)
== END 2020-05-01 21:35 ==
LOC: LBN 21:15
PROVIDERS: PCP Family Medicine; Visit Provider Family Medicine
DX: R35.0 Frequency of micturition (principal)
CPT/HCPCS: 87077; 81003; 81015; 87086; 87186

== ENCOUNTER 2020-05-05 03:43 | Outpatient (CLI) | payer MEDICARE, BC, SELFPAY ==
[2020-05-05 08:16] LABS: Calculated LDL 136 mg/dL (<100); Cholesterol 191 mg/dL (<200); HDL Cholesterol 42 mg/dL (40-60); TSH (W/Ref FT4) 1.09 uIU/mL (0.36-3.74); Triglyceride 68 mg/dL (<150)
[2020-05-05 08:49] LABS: NT-proBNP 81 pg/mL (<300)
== END 2020-05-05 04:03 ==
PROVIDERS: PCP Family Medicine; Visit Provider Family Medicine
DX: E11.9 Type 2 diabetes mellitus without complications (principal); I50.9 Heart failure, unspecified
CPT/HCPCS: 36415; 80061; 83036; 83880; 84443

== ENCOUNTER 2020-05-08 01:42 | Outpatient (CLI) | payer MEDICARE, BC, SELFPAY ==
--- NOTE | 2020-05-08 08:00 | DI.NM_ITS ---
APPROVED REPORT Exam: Pharmacologic Patient Location: Out-Patient Room/Bed: Stress Nurse: Sole Anne RN BMI: 42.37 Baseline Rhythm: Sinus Rhythm Comment: 1st degree AV block Indications: SOB. Weight gain. CHF. Medical History Medical History: CHF, Obstructive sleep apnea, Obesity , HTN, Hyperlipidemia Cardiac Medications: Aspirin. Magnesium. Losartan. Furosemide., Allergies: Ciprofloxacin. Cephalexin. Sulfamethoxazole. Trimethoprim. Lisinopril. Simvastatin. Cardiac Risk Factors: HTN, Hyperlipidemia, pre diabetes. Exercise History: Physically active Physical Disabilities: Hips, Legs Lung Sounds: Clear to auscultation Heart Sounds: Regular Stress Test Details Test: Pharmacologic stress testing performed using 0.4 mg of regadenoson per 5 mL given IV over 10 s econds. Nuclear Acquisition: Rest Tc-99m/Stress Tc-99m 1 day Rest Isotope: Tc-99m Sestamibi. Dose: 11.9 Date: 05/08/2020 Injection Time: 1040 Stress Isotope: Tc-99m Sestamibi. Dose: 35.0 Date: 05/08/2020 Injection Time: 1215 HR Resting HR Supine: 70 bpm Max Heart Rate (APMHR): 151.973336 bpm Target HR (85% APMHR): 128.953168 bpm Max HR Achieved: 81 bpm % of APMHR: 53.64 Recovery HR: 77 bpm HR response to stress: Normal HR response to stress BP Resting BP Supine: 144/88 mmHg Max BP: 144/88 mmHg Recovery BP: 140/72 mmHg BP response to stress: Normal blood pressure response to stress. ECG Resting ECst degree AV block Stress ECst degree AV block Recovery ECst degree AV block Clinical Stress Symptoms: Dyspnea 30 seconds post lexiscan injection, subsided by 4 minutes post lexiscan inje ction Stress ECG Conclusion 1. Resting electrocardiogram showed first-degree AV block, otherwise unremarkable 2. This was a pharmacologic myocardial perfusion imaging study using regadenoson 3. Blunted heart rate and blood pressure response to pharmacologic stress 4. Electrocardiographically the test was nondiagnostic due to inadequate heart rate. The patient ach ieved 53% of predicted heart rate for age 5. There were no dysrhythmias Stress Test Summary STAGE HR BP Symptoms NOTES Supine 70 144/88 1 min post Lexiscan injection 81 134/80 3 min post Lexiscan injection 83 130/82 6 min post Lexiscan injection 77 140/72 MPI Conclusion Possible inferior ischemia EF 47% Radiologist Interpretation Radiologist Interpretation by: Edgar Mcclure MD Interpretation Date/Time: 05/08/2020 15:43:19
[2020-05-08] MEDS: Regadenoson 0.4 MG/5 ML SYR IVP (12:48)
== END 2020-05-08 02:02 ==
PROVIDERS: PCP Family Medicine; Visit Provider Family Medicine
DX: I50.9 Heart failure, unspecified (principal); R06.02 Shortness of breath; R63.5 Abnormal weight gain; I10 Essential (primary) hypertension; E78.5 Hyperlipidemia, unspecified; R73.03 Prediabetes; R94.39 Abnormal result of other cardiovascular function study
CPT/HCPCS: 78452; 93016; 93018; 93017; J2785

== ENCOUNTER 2020-06-07 22:36 | Outpatient (REF) | payer MEDICARE, BC, SELFPAY ==
[2020-06-07 22:16] LABS: Bilirubin Negative (Negative); Blood Trace-intact (Negative); Clarity Clear (Clear); Glucose Negative (Negative); Ketones Negative (Negative); Leukocyte Esterase Large (Negative); Nitrite Positive (Negative); Specific Gravity 1.025 (1.005-1.025); Urobilinogen 0.2 EU/dL (Up TO 0.2); pH 6.5 (5-8)
[2020-06-07 22:20] LABS: Bacteria Moderate HPF (Negative); Crystals Negative HPF (Negative); Epithelial Cells Few HPF (Negative); Mucus Negative (Negative); WBC >50 HPF (0-5)
[2020-06-07 22:21] LABS: C & S Indicated? Yes; Casts Negative LPF (Negative)
== END 2020-06-07 22:56 ==
LOC: LBN 22:36
PROVIDERS: PCP Family Medicine; Visit Provider Family Medicine
DX: R68.83 Chills (without fever) (principal)
CPT/HCPCS: 87077; 81003; 81015; 87086; 87186

== ENCOUNTER → 2020-06-08 12:31 | Outpatient (BNVA) | payer MEDICARE, BC, SELFPAY | PROVIDERS: PCP Family Medicine; Referring Provider Family Medicine; Visit Provider Internal Medicine Cardiovascular Disease | DX: R06.02 Shortness of breath (principal); I10 Essential (primary) hypertension | CPT/HCPCS: 99204; 99215 ==

== ENCOUNTER → 2020-10-26 13:39 | Outpatient (BNVA) | payer MEDICARE, BC, SELFPAY | PROVIDERS: PCP Family Medicine; Referring Provider Family Medicine; Visit Provider Internal Medicine Cardiovascular Disease | DX: I50.9 Heart failure, unspecified (principal); R06.02 Shortness of breath | CPT/HCPCS: 99214; 99213 ==

== ENCOUNTER 2020-12-25 03:28 | Outpatient (CLI) | payer MEDICARE, BC, SELFPAY ==
[2020-12-25 09:08] LABS: ALT 49 U/L (16-63); AST 29 U/L (15-37); Albumin 3.6 g/dL (3.4-5.0); Alkaline Phosphatase 108 U/L (46-116); Anion Gap 5.2 mmol/L (3-11); BUN 16 mg/dL (7-18); Bilirubin, Total 0.7 mg/dL (0.2-1.0); CO2 28.8 mmol/L (21.0-32.0); Calcium 8.4 mg/dL (8.5-10.1); Chloride 108 mmol/L (98-107); Glucose 113 mg/dL (74-106); Potassium 4.3 mmol/L (3.5-5.1); Sodium 142 mmol/L (136-145); Total Protein 6.7 g/dL (6.4-8.2)
== END 2020-12-25 03:29 | disposition home or self-care (01) ==
LOC: LBO 03:28
PROVIDERS: PCP Family Medicine; Visit Provider Family Medicine
DX: R06.02 Shortness of breath (principal); E11.9 Type 2 diabetes mellitus without complications
CPT/HCPCS: 36415; 80053; 83036

== ENCOUNTER 2021-01-11 18:12 | Outpatient (REF) | payer MEDICARE, BC, SELFPAY ==
[2021-01-11 21:30] LABS: Bilirubin Negative (Negative); Blood Negative (Negative); Clarity Clear (Clear); Glucose Negative (Negative); Ketones Negative (Negative); Leukocyte Esterase Negative (Negative); Nitrite Negative (Negative); Urobilinogen 0.2 EU/dL (Up TO 0.2); pH 6.5 (5-8)
== END 2021-01-11 18:13 | disposition home or self-care (01) ==
LOC: LBN 18:12
PROVIDERS: PCP Family Medicine; Visit Provider Family Medicine
DX: R30.0 Dysuria (principal)
CPT/HCPCS: 81003

== ENCOUNTER 2021-03-22 03:40 | Outpatient (CLI) | payer MEDICARE, BC, SELFPAY ==
[2021-03-22 16:57] LABS: Abs Immature Grans 0.02 10^3/uL (0.0-0.06); Absolute Basophil Count 0.05 10^3/uL (0.0-0.2); Absolute Eosinophil Count 0.16 10^3/uL (0.0-0.7); Absolute Monocyte Count 0.59 10^3/uL (0.1-0.8); Absolute Neutrophil Count 3.78 10^3/uL (1.2-6.7); Basophils % 0.8; Eosinophils % 2.4; HCT 40.2 % (40.0-50.0); Immature Grans % 0.3; Lymphocytes % 30.3; MCHC 34.8 % (32.0-36.0); MCV 94.8 fL (80-95); MPV 9.5 fL (8.0-11.0); Monocytes % 8.9; Neutrophils % 57.3; Nucleated RBC 0 %; Platelet Count 184 10^3/uL (130-400); RBC 4.24 10^6/uL (4.36-5.78); RDW 12.3 % (11.8-14.1); RDW-SD 42.9 fL
[2021-03-22 17:06] LABS: ALT 66 U/L (16-63); AST 39 U/L (15-37); Albumin 3.5 g/dL (3.4-5.0); Alkaline Phosphatase 103 U/L (46-116); Anion Gap 10.2 mmol/L (3-11); BUN 16 mg/dL (7-18); Bilirubin, Total 0.5 mg/dL (0.2-1.0); CO2 24.8 mmol/L (21.0-32.0); CREATININE 1.1 mg/dL (0.70-1.30); Calcium 8.8 mg/dL (8.5-10.1); Chloride 106 mmol/L (98-107); Glucose 119 mg/dL (74-106); Potassium 3.5 mmol/L (3.5-5.1); Sodium 141 mmol/L (136-145); Total Protein 7.2 g/dL (6.4-8.2)
== END 2021-03-22 03:41 | disposition home or self-care (01) ==
LOC: LBO 03:40
PROVIDERS: PCP Family Medicine; Visit Provider Nurse Practitioner Adult Health
DX: C82.21 Follicular lymphoma grade III, unspecified, lymph nodes of head, face, and neck (principal)
CPT/HCPCS: 36415; 80053; 85025

== ENCOUNTER → 2021-04-24 14:14 | Outpatient (BNVA) | payer MEDICARE, BC, SELFPAY | PROVIDERS: PCP Family Medicine; Referring Provider Family Medicine; Visit Provider Internal Medicine Cardiovascular Disease | DX: R06.02 Shortness of breath (principal); Z98.890 Other specified postprocedural states | CPT/HCPCS: 99214; 99213 ==

== ENCOUNTER 2021-07-05 02:04 | Outpatient (CLI) | payer MEDICARE, BC, SELFPAY ==
[2021-07-05 16:39] LABS: Hemoglobin A1C 6.2 % (<5.7)
[2021-07-05 17:42] LABS: TSH (W/Ref FT4) 1.13 uIU/mL (0.36-3.74); Vitamin B12 697 pg/mL (193-986)
== END 2021-07-05 02:05 | disposition home or self-care (01) ==
LOC: LBO 02:04
PROVIDERS: PCP Family Medicine; Visit Provider Family Medicine
DX: I10 Essential (primary) hypertension (principal); E11.9 Type 2 diabetes mellitus without complications; R20.2 Paresthesia of skin; G62.9 Polyneuropathy, unspecified
CPT/HCPCS: 36415; 82607; 83036; 84443

== ENCOUNTER → 2021-07-23 13:40 | Outpatient (BNVA) | payer MEDICARE, BC, SELFPAY | PROVIDERS: PCP Family Medicine; Visit Provider Internal Medicine Cardiovascular Disease | DX: R06.02 Shortness of breath (principal); U09.9 Post COVID-19 condition, unspecified | CPT/HCPCS: 99213 ==

== ENCOUNTER → 2021-09-17 12:54 | Outpatient (BNVA) | payer MEDICARE, BC, SELFPAY | PROVIDERS: PCP Family Medicine; Referring Provider Family Medicine; Visit Provider Nurse Practitioner Gerontology | DX: N39.0 Urinary tract infection, site not specified (principal); N31.2 Flaccid neuropathic bladder, not elsewhere classified; I11.0 Hypertensive heart disease with heart failure; I50.9 Heart failure, unspecified; Z98.890 Other specified postprocedural states | CPT/HCPCS: 81003; 99214 ==

== ENCOUNTER 2021-09-24 00:40 | Outpatient (CLI) | payer MEDICARE, BC, SELFPAY ==
[2021-09-24 14:18] LABS: Abs Immature Grans 0.01 10^3/uL (0.0-0.06); Absolute Basophil Count 0.03 10^3/uL (0.0-0.2); Absolute Eosinophil Count 0.09 10^3/uL (0.0-0.7); Absolute Monocyte Count 0.49 10^3/uL (0.1-0.8); Absolute Neutrophil Count 4.11 10^3/uL (1.2-6.7); Basophils % 0.4; Eosinophils % 1.3; HGB 14.9 g/dL (13.5-17.5); Immature Grans % 0.1; Lymphocytes % 30.7; MCH 31.9 pg (27.0-33.0); MCHC 33.9 % (32.0-36.0); MCV 94.2 fL (80-95); MPV 9.6 fL (8.0-11.0); Monocytes % 7.2; Neutrophils % 60.3; Nucleated RBC 0 %; Platelet Count 155 10^3/uL (130-400); RBC 4.67 10^6/uL (4.36-5.78); RDW-SD 41.8 fL; WBC 6.83 10^3/uL (4.4-10.8)
[2021-09-24] MEDS: Breeza Beverage 473 ML BTL PO ×2 (14:21→14:22)
[2021-09-24] MEDS: Omnipaque 350 MG/ML 50 ML BTL PO (14:21)
[2021-09-24 14:48] LABS: ALT 40 U/L (16-63); AST 30 U/L (15-37); Albumin 3.5 g/dL (3.4-5.0); Alkaline Phosphatase 93 U/L (46-116); Anion Gap 6.5 mmol/L (3-11); BUN 13 mg/dL (7-18); Bilirubin, Total 0.8 mg/dL (0.2-1.0); CO2 28.5 mmol/L (21.0-32.0); CREATININE 0.9 mg/dL (0.70-1.30); Calcium 8.6 mg/dL (8.5-10.1); Chloride 102 mmol/L (98-107); Glucose 91 mg/dL (74-106); LDH 171 U/L (85-227); Potassium 3.9 mmol/L (3.5-5.1); Sodium 137 mmol/L (136-145); Total Protein 6.9 g/dL (6.4-8.2)
--- NOTE | 2021-09-24 15:06 | DI.CT_ITS ---
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 TECHNIQUE: Imaging Protocol: Axial computed tomography images with coronal and sagittal reformatted images were created and reviewed CONTRAST MATERIAL: Intravenous: Omnipaque 350 Contrast volume:100 ml Oral: yes COMPARISON: CT CHEST ABD PELVIS WITH CONTRAST from 07/15/2017 FINDINGS: CHEST: Tracheobronchial tree: Patent where visualized. Mediastinum and [place]: No dominant adenopathy or fluid collection. Pulmonary parenchyma: No consolidation or dominant measurable mass. Pleura: No effusion or pneumothorax. Lymph nodes: Within normal limits. Aorta: Thoracic portion non-dilated. Tortuous. Sdbc-fi-udyhwuiz atherosclerotic changes. Heart: Normal size. Coronary artery calcifications are seen. Bones: Flowing osteophytes. No lytic or blastic lesions. ABDOMEN: Liver: Lcxz-bl-gknfqrru hepatic steatosis.. No measurable mass. Gallbladder and biliary tract: No radiodense calculus or dilation. Pancreas: Normal density, no abnormal calcifications or inflammatory process. Spleen: Normal. Kidneys: Normal size, contour and axis. No radiodense stones or obstructive uropathy. No masses seen. Cyst upper pole left kidney. Adrenal glands: No masses seen. Aorta: Abdominal portion non-dilated. Vwgu-hc-fzaklkza atherosclerotic changes. Lymph nodes: Within normal limits. Soft tissues: Unremarkable. PELVIS: Bladder: [place] distended. No mass, stone or, gross wall thickening. Bowel: Mild sigmoid diverticulosis. Normal quantity of stool. No obstruction or bowel wall thickeni ng. Peritoneal cavity: No ascites, collection or mesenteric inflammatory response. Bones: Degenerative changes. Reproductive organs: Prostate shows TURP defect.. IMPRESSION: No evidence adenopathy in the abdomen or pelvis. No acute abnormality in the chest abdomen or pelvis .. RADIATION DOSE DELIVERED: 2,952.31mGy.cm Total DLP DATA REPOSITORY: All CT scans at this facility are submitted to the National Radiology Data Registry (NRDR) Dose Index Registry (DIR) with the [employer] (ACR). RADIATION OPTIMIZATION: All CT scans at this facility use at least one of these dose optimization te chniques: automated exposure control; mA and/or kV adjustment per patient size (includes targeted exa ms where dose is matched to clinical indication); or iterative reconstruction.
== END 2021-09-24 01:00 ==
PROVIDERS: Internal Medicine Hematology & Oncology; PCP Family Medicine; Visit Provider Nurse Practitioner Family
DX: C82.30 Follicular lymphoma grade IIIa, unspecified site
CPT/HCPCS: 74177; 80053; 71260; 83615; 85025; Q9967

== ENCOUNTER → 2021-12-17 14:33 | Outpatient (BNVA) | payer MEDICARE, BC, SELFPAY | PROVIDERS: PCP Family Medicine; Referring Provider Family Medicine; Visit Provider Nurse Practitioner Gerontology | DX: N31.2 Flaccid neuropathic bladder, not elsewhere classified (principal); N39.0 Urinary tract infection, site not specified | CPT/HCPCS: 51798; 81003; 99214 ==

== ENCOUNTER → 2021-12-18 13:50 | Outpatient (BNVA) | payer MEDICARE, BC, SELFPAY | PROVIDERS: PCP Family Medicine; Referring Provider Family Medicine; Visit Provider Nurse Practitioner Gerontology | DX: R69 Illness, unspecified (principal) ==

== ENCOUNTER → 2022-01-21 13:39 | Outpatient (BNVA) | payer MEDICARE, BC, SELFPAY | PROVIDERS: PCP Family Medicine; Visit Provider Internal Medicine Cardiovascular Disease | DX: R06.02 Shortness of breath (principal); I10 Essential (primary) hypertension | CPT/HCPCS: 99213 ==

== ENCOUNTER → 2022-04-04 14:59 | Outpatient (BNVA) | payer MEDICARE, BC, SELFPAY | PROVIDERS: PCP Family Medicine; Visit Provider Nurse Practitioner Gerontology | DX: N39.0 Urinary tract infection, site not specified (principal); R31.9 Hematuria, unspecified; N31.2 Flaccid neuropathic bladder, not elsewhere classified | CPT/HCPCS: 51798; 81003; 99214 ==

== ENCOUNTER 2022-04-04 18:34 | Outpatient (REF) | payer MEDICARE, BC, SELFPAY | END 2022-04-04 18:35 | disposition home or self-care (01) | LOC: LBN 18:34 | PROVIDERS: PCP Family Medicine; Visit Provider Nurse Practitioner Gerontology | DX: R31.9 Hematuria, unspecified (principal) | CPT/HCPCS: 87077; 87086; 87186 ==

== ENCOUNTER 2022-04-12 01:44 | Outpatient (CLI) | payer MEDICARE, BC, SELFPAY ==
[2022-04-12 16:13] LABS: Abs Immature Grans 0.02 10^3/uL (0.0-0.06); Absolute Basophil Count 0.04 10^3/uL (0.0-0.2); Absolute Eosinophil Count 0.23 10^3/uL (0.0-0.7); Absolute Lymphocyte Count 2.02 10^3/uL (1.2-3.4); Absolute Monocyte Count 0.54 10^3/uL (0.1-0.8); Absolute Neutrophil Count 4.13 10^3/uL (1.2-6.7); Basophils % 0.6; Eosinophils % 3.3; HGB 14.6 g/dL (13.5-17.5); Immature Grans % 0.3; Lymphocytes % 28.9; MCHC 35.6 % (32.0-36.0); MCV 93 fL (80-95); MPV 9.2 fL (8.0-11.0); Monocytes % 7.7; Neutrophils % 59.2; Platelet Count 187 10^3/uL (130-400); RBC 4.42 10^6/uL (4.36-5.78); RDW 12.1 % (11.8-14.1); RDW-SD 41.7 fL; WBC 6.98 10^3/uL (4.4-10.8)
[2022-04-12 16:31] LABS: ALT 39 U/L (16-63); Albumin 3.6 g/dL (3.4-5.0); Alkaline Phosphatase 107 U/L (46-116); Anion Gap 8.7 mmol/L (3-11); BUN 19 mg/dL (7-18); Bilirubin, Total 0.6 mg/dL (0.2-1.0); CO2 26.3 mmol/L (21.0-32.0); Calcium 8.6 mg/dL (8.5-10.1); Chloride 102 mmol/L (98-107); Glucose 105 mg/dL (74-106); LDH 189 U/L (85-227); Potassium 3.5 mmol/L (3.5-5.1); Sodium 137 mmol/L (136-145); Total Protein 7.1 g/dL (6.4-8.2)
[2022-04-12 17:00] LABS: AST 26 U/L (15-37)
== END 2022-04-12 01:45 | disposition home or self-care (01) ==
LOC: LBO 01:45
PROVIDERS: PCP Family Medicine; Visit Provider Internal Medicine Hematology & Oncology
DX: C82.20 Follicular lymphoma grade III, unspecified, unspecified site (principal)
CPT/HCPCS: 36415; 80053; 83615; 85025

== ENCOUNTER 2022-06-18 18:07 | Outpatient (REF) | payer MEDICARE, BC, SELFPAY ==
[2022-06-18 18:24] LABS: Bilirubin Negative (Negative); Blood Negative (Negative); Clarity Clear (Clear); Glucose Negative (Negative); Ketones Negative (Negative); Leukocyte Esterase Negative (Negative); Nitrite Negative (Negative); Urobilinogen 0.2 EU/dL (Up TO 0.2); pH 6.5 (5-8)
== END 2022-06-18 18:08 | disposition home or self-care (01) ==
LOC: LBN 18:07
PROVIDERS: Urology; PCP Family Medicine; Visit Provider Nurse Practitioner Gerontology
DX: R31.9 Hematuria, unspecified (principal)
CPT/HCPCS: 87077; 81003; 87086; 87186

== ENCOUNTER → 2022-07-02 14:59 | Outpatient (BNVA) | payer MEDICARE, BC, SELFPAY | PROVIDERS: PCP Family Medicine; Referring Provider Family Medicine; Visit Provider Nurse Practitioner Gerontology | DX: R39.89 Other symptoms and signs involving the genitourinary system (principal); Z87.440 Personal history of urinary (tract) infections; N31.2 Flaccid neuropathic bladder, not elsewhere classified | CPT/HCPCS: 51798; 99214 ==

== ENCOUNTER 2022-07-22 08:03 | Outpatient (CLI) | payer MEDICARE, BC, SELFPAY ==
--- NOTE | 2022-07-22 08:00 | RT.EKG_ITS ---
APPROVED REPORT Exam: Resting ECG Reason for Exam: SOB Patient Location: O HR:89 bpm ECG Measurements Heart Rate 89 AXIS SD 260 P -10 QRSd 90 QRS -19 QT 318 T 150 QTc 387 Conclusion Sinus rhythm...normal P axis, V-rate 50- 99 Prolonged SD interval...SD >220, V-rate 50- 90 Borderline left axis deviation...QRS axis (-15,-29) Low voltage, precordial leads...precordial leads <1.0mV Abnormal R-wave progression, early transition...QRS area>0 in V2 Nonspecific T abnormalities, lateral leads...T <-0.10mV, I aVL V5 V6
== END 2022-07-22 08:04 | disposition home or self-care (01) ==
LOC: DI.CARD 08:04
PROVIDERS: PCP Family Medicine; Visit Provider Internal Medicine Cardiovascular Disease
DX: R06.02 Shortness of breath (principal); R94.31 Abnormal electrocardiogram [ECG] [EKG]
CPT/HCPCS: 93010

== ENCOUNTER → 2022-07-22 13:39 | Outpatient (BNVA) | payer MEDICARE, BC, SELFPAY | PROVIDERS: PCP Family Medicine; Referring Provider Family Medicine; Visit Provider Internal Medicine Cardiovascular Disease | DX: R06.02 Shortness of breath (principal) | CPT/HCPCS: 93005; 99213 ==

== ENCOUNTER → 2022-10-02 14:32 | Outpatient (BNVA) | payer MEDICARE, BC, SELFPAY | PROVIDERS: PCP Family Medicine; Referring Provider Family Medicine; Visit Provider Nurse Practitioner Gerontology | DX: Z87.440 Personal history of urinary (tract) infections (principal); N31.2 Flaccid neuropathic bladder, not elsewhere classified | CPT/HCPCS: 36415; 99214 ==

== ENCOUNTER 2022-10-02 16:05 | Outpatient (REF) | payer MEDICARE, BC, SELFPAY ==
[2022-10-03 19:25] LABS: PSA, Screening 0.5 ng/mL (<=6.5)
== END 2022-10-02 16:06 | disposition home or self-care (01) ==
LOC: LBN 16:05
PROVIDERS: PCP Family Medicine; Visit Provider Nurse Practitioner Gerontology
DX: R31.9 Hematuria, unspecified (principal); N31.2 Flaccid neuropathic bladder, not elsewhere classified; R39.89 Other symptoms and signs involving the genitourinary system; Z12.5 Encounter for screening for malignant neoplasm of prostate
CPT/HCPCS: 84153

== ENCOUNTER → 2023-02-17 11:04 | Outpatient (BNVA) | payer MEDICARE, BC, SELFPAY | PROVIDERS: PCP Family Medicine; Visit Provider Internal Medicine Cardiovascular Disease | DX: I10 Essential (primary) hypertension (principal); R06.02 Shortness of breath | CPT/HCPCS: 99213 ==

== ENCOUNTER 2023-02-17 11:15 | Outpatient (REF) | payer MEDICARE, BC, SELFPAY ==
[2023-02-17 11:35] LABS: Bilirubin Negative (Negative); Blood Small (Negative); Clarity Cloudy (Clear); Glucose Negative (Negative); Ketones Negative (Negative); Leukocyte Esterase Large (Negative); Nitrite Negative (Negative); Specific Gravity 1.015 (1.005-1.025); Urobilinogen 0.2 mg/dL (Up to 0.2)
[2023-02-17 11:44] LABS: Bacteria Rare HPF (Negative); C & S Indicated? C&S Done As Ordered; Casts Negative LPF (Negative); Crystals Negative HPF (Negative); Epithelial Cells Few HPF (Negative); Mucus Negative (Negative); RBC 0-2 HPF (0-2); WBC >50 HPF (0-5)
== END 2023-02-17 11:16 | disposition home or self-care (01) ==
LOC: LBN 11:15
PROVIDERS: PCP Family Medicine; Visit Provider Nurse Practitioner Gerontology
DX: R35.0 Frequency of micturition (principal)
CPT/HCPCS: 87077; 81003; 81015; 87086; 87186

== ENCOUNTER 2023-03-04 09:35 | Outpatient (CLI) | payer MEDICARE, BC, SELFPAY ==
[2023-03-04 14:47] LABS: ALT 31 U/L (16-63); AST 22 U/L (15-37); Albumin 3.8 g/dL (3.4-5.0); Alkaline Phosphatase 105 U/L (46-116); Anion Gap 11.1 mmol/L (3-11); BUN 20 mg/dL (7-18); CO2 26.9 mmol/L (21.0-32.0); CREATININE 1.2 mg/dL (0.70-1.30); Calcium 8.9 mg/dL (8.5-10.1); Chloride 104 mmol/L (98-107); Estimated GFR 64.25 (mL/min/1.73m2); Glucose 107 mg/dL (74-106); Sodium 142 mmol/L (136-145); Total Protein 7.6 g/dL (6.4-8.2)
== END 2023-03-04 09:36 | disposition home or self-care (01) ==
LOC: LOS 09:36
PROVIDERS: PCP Family Medicine; Referring Provider Family Medicine; Visit Provider Family Medicine
DX: I11.0 Hypertensive heart disease with heart failure (principal); I50.9 Heart failure, unspecified; E11.9 Type 2 diabetes mellitus without complications
CPT/HCPCS: 36415; 80053

== ENCOUNTER 2023-03-05 02:00 | Outpatient (CLI) | payer MEDICARE, BC, SELFPAY ==
--- NOTE | 2023-03-05 09:29 | DI.RAD_ITS ---
Exam(s) XR FOOT LT COMPLETE EXAM: XR FOOT LT COMPLETE CLINICAL HISTORY: b/l foot pain,m79.671,m79.672. TECHNIQUE: 2D digital imaging was performed of the left foot. Three images were obtained. AP, obli que and lateral views were obtained. COMPARISON: No exams were available for comparison FINDINGS: BONES: No acute fracture is present. No bony destructive lesion is seen. There is an enthesophyte at the posterior calcaneus. There is a plantar calcaneal spur. JOINTS: No dislocation present. Mild degenerative changes are seen in the foot. SOFT TISSUE: Atherosclerosis is present. IMPRESSION: Mild degenerative changes of the foot. DATA REPOSITORY: RADIATION DOSE DELIVERED:
--- NOTE | 2023-03-05 09:30 | DI.RAD_ITS ---
Exam(s) XR FOOT RT COMPLETE EXAM: XR FOOT RT COMPLETE CLINICAL HISTORY: b/l foot pain,m79.671,m79.672. TECHNIQUE: 2D digital imaging was performed of the right foot. Three images were obtained. AP, obl ique and lateral views were obtained. COMPARISON: No exams were available for comparison FINDINGS: BONES: No acute fracture is present. No bony destructive lesion is seen. Small plantar calcaneal spur . There is an enthesophyte at the posterior calcaneus. JOINTS: No dislocation present. There are mild degenerative changes seen in the foot. SOFT TISSUE: Atherosclerosis is present. IMPRESSION: No acute abnormality. Mild degenerative changes seen in the foot. DATA REPOSITORY: RADIATION DOSE DELIVERED:
== END 2023-03-05 02:20 ==
LOC: DI 02:00
PROVIDERS: PCP Family Medicine; Visit Provider Family Medicine
DX: M79.671 Pain in right foot (principal); M79.672 Pain in left foot
CPT/HCPCS: 73630

== ENCOUNTER 2023-03-18 18:37 | Outpatient (REF) | payer MEDICARE, BC, SELFPAY ==
[2023-03-18 16:48] LABS: Bilirubin Negative (Negative); Blood Negative (Negative); Clarity Clear (Clear); Glucose Negative (Negative); Ketones Negative (Negative); Leukocyte Esterase Negative (Negative); Nitrite Negative (Negative); Specific Gravity 1.015 (1.005-1.025); Urobilinogen 0.2 mg/dL (Up to 0.2)
== END 2023-03-18 18:38 | disposition home or self-care (01) ==
LOC: LBN 18:37
PROVIDERS: PCP Family Medicine; Visit Provider Urology
DX: N39.0 Urinary tract infection, site not specified (principal); R31.9 Hematuria, unspecified
CPT/HCPCS: 87077; 81003; 87086; 87186

== ENCOUNTER → 2023-04-02 14:25 | Outpatient (BNVA) | payer MEDICARE, BC, SELFPAY | PROVIDERS: PCP Family Medicine; Visit Provider Nurse Practitioner Gerontology | DX: R39.89 Other symptoms and signs involving the genitourinary system (principal); Z87.440 Personal history of urinary (tract) infections; N31.2 Flaccid neuropathic bladder, not elsewhere classified | CPT/HCPCS: 99213 ==

== ENCOUNTER 2023-07-17 16:05 | Outpatient (REF) | payer MEDICARE, BC, SELFPAY ==
[2023-07-17 17:57] LABS: Bilirubin Negative (Negative); Blood Trace-intact (Negative); Clarity Turbid (Clear); Glucose Negative (Negative); Ketones Negative (Negative); Leukocyte Esterase Large (Negative); Nitrite Positive (Negative); Urobilinogen 0.2 mg/dL (Up to 0.2)
[2023-07-17 18:06] LABS: WBC >50 HPF (0-5)
[2023-07-17 18:07] LABS: Bacteria Many HPF (Negative); C & S Indicated? C&S Done As Ordered; Casts Negative LPF (Negative); Crystals Negative HPF (Negative); Epithelial Cells Rare HPF (Negative); Mucus Negative (Negative); Other Cells Rare Renal (Negative)
== END 2023-07-17 16:06 | disposition home or self-care (01) ==
LOC: LBN 16:05
PROVIDERS: PCP Family Medicine; Visit Provider Nurse Practitioner Gerontology
DX: R30.0 Dysuria (principal); B96.5 Pseudomonas (aeruginosa) (mallei) (pseudomallei) as the cause of diseases classified elsewhere
CPT/HCPCS: 87077; 81003; 81015; 87086; 87186

== ENCOUNTER 2023-09-04 10:52 | Outpatient (CLI) | payer MEDICARE, BC, SELFPAY ==
[2023-09-04 12:46] LABS: ALT 41 U/L (16-63); AST 29 U/L (15-37); Albumin 3.5 g/dL (3.4-5.0); Alkaline Phosphatase 109 U/L (46-116); Anion Gap 9.7 mmol/L (3-11); BUN 15 mg/dL (7-18); Bilirubin, Total 0.9 mg/dL (0.2-1.0); CO2 27.3 mmol/L (21.0-32.0); Calcium 8.7 mg/dL (8.5-10.1); Chloride 103 mmol/L (98-107); Estimated GFR 79.97 (mL/min/1.73m2); Glucose 108 mg/dL (74-106); Sodium 140 mmol/L (136-145); Total Protein 7.1 g/dL (6.4-8.2)
== END 2023-09-04 10:53 | disposition home or self-care (01) ==
LOC: LOS 10:52
PROVIDERS: PCP Family Medicine; Visit Provider Family Medicine
DX: I10 Essential (primary) hypertension (principal)
CPT/HCPCS: 36415; 80053

== ENCOUNTER → 2023-10-08 14:47 | Outpatient (BNVA) | payer MEDICARE, BC, SELFPAY | PROVIDERS: PCP Family Medicine; Visit Provider Nurse Practitioner Gerontology | DX: Z87.440 Personal history of urinary (tract) infections (principal); N31.2 Flaccid neuropathic bladder, not elsewhere classified | CPT/HCPCS: 99213 ==

== ENCOUNTER 2023-10-13 12:04 | Emergency (ER) | payer MEDICARE, BC, SELFPAY ==
[2023-10-13 12:07] VITALS: BP 151/79; PULSE 98; RESP 17; TEMP 36.5; O2SAT 98
--- NOTE | 2023-10-13 13:33 | NUR.NOTE ---
Referral given to Care managers to assist the Pt in obtaining a Referral to see the General Surgeon in [facility] by the end of the week.
--- NOTE | 2023-10-13 13:36 | NUR.NOTE ---
Referral faxed to Dr Lee to be seen within 1-2 days for a penis infection.
--- NOTE | 2023-10-13 15:21 | ED.GENADUL_ITS ---
HPI General Date/Time Provider Initiated Documentation: 10/13/23 12:10 . Limitations to Documentation: no limitations . Information obtained by: patient . HPI Narrative: 72-year-old gentleman with past medical history of hypotonic bladder requiring intermittent self cath presents for evaluation of penile swelling. Reports that this has been ongoing for the last week. He denies significant pain of the penis. He has not had any difficulty urinating. He still follow-up voids spontaneously, and is able to do his self caths twice daily. He denies any drainage from the penis, denies any fevers. He reports that a little over a week ago he had difficulty retracting his foreskin. He states that he was still voiding but there was a lot of dribbling and urine collection within the foreskin. He states that this was very irritating. This went on for about 3 days and then he was able to retract the foreskin fully. He states that it was very tender and uncomfortable and that he then had some hesitancy trying to return the foreskin to position but that he was able to do this so. He states that he has been having swelling at the tip of the penis. This swelling has been improving, but not gotten better. Related Data Home Medications Medication Instructions Recorded Confirmed aspirin 81 mg chewable tablet 1 tab PO DAILY 12/23/12 10/13/23 (Aspirin Low-Strength) cholecalciferol (vitamin D3) 25 1 cap PO DAILY 12/23/12 10/13/23 mcg (1,000 unit) capsule grtathhubs-mfrhbrpouk-zjgaeeuy-hyalur 1 cap PO BID 12/23/12 10/13/23 ac 375 mg-300 mg-175 mg-2 mg cap vitamin B12 1,000 mcg-folic acid 2 ea sublingual DAILY #100 tabs 05/24/14 10/13/23 400 mcg sublingual tablet ascorbic acid (vitamin C) 500 mg 1,000 mg PO DAILY 05/01/15 10/13/23 chewable tablet (Vitamin C) magnesium oxide 400 mg (241.3 mg 800 mg PO DAILY 05/01/15 10/13/23 magnesium) tablet tamsulosin 0.4 mg capsule 0.4 mg PO HS #90 tab-caps 04/16/23 10/13/23 cefuroxime axetil 250 mg tablet 250 mg PO DAILY #90 tabs 05/22/23 10/13/23 furosemide 40 mg tablet 40 mg PO DAILY #90 tabs 07/10/23 10/13/23 losartan 100 mg tablet (Cozaar) 100 mg PO QAM #90 tab-caps 07/10/23 10/13/23 hydrocortisone 1 % topical cream 1 applic topical BID #28.4 grams 10/13/23 Previous Rx's Medication Instructions Recorded tamsulosin 0.4 mg capsule 0.4 mg PO HS #90 tab-caps 04/16/23 cefuroxime axetil 250 mg tablet 250 mg PO DAILY #90 tabs 05/22/23 furosemide 40 mg tablet 40 mg PO DAILY #90 tabs 07/10/23 losartan 100 mg tablet (Cozaar) 100 mg PO QAM #90 tab-caps 07/10/23 hydrocortisone 1 % topical cream 1 applic topical BID #28.4 grams 10/13/23 Allergies Allergy/AdvReac Type Severity Reaction Status Date / Time ciprofloxacin Allergy Intermediate Tremors, Verified 10/13/23 12:14 altered sensation cephalexin AdvReac Intermediate STOMACH Verified 10/13/23 12:14 ACHE; CONFUSION sulfamethoxazole AdvReac Intermediate nausea Verified 10/13/23 12:14 [From Bactrim] trimethoprim [From Bactrim] AdvReac Intermediate nausea Verified 10/13/23 11:26 lisinopril AdvReac Mild COUGH Verified 10/13/23 12:14 Penicillins AdvReac Mild rash Verified 10/13/23 12:14 simvastatin AdvReac Mild MUSCLE Verified 10/13/23 12:14 ACHES General Stated Complaint: Male Reproductive Problem SHRUTI: 3 Exam Narrative Exam Narrative: Review of Systems: All systems reviewed & are unremarkable except as noted in HPI and below Well-developed, no acute distress NCAT PERRL, normal conjunctiva RRR Unlabored respiratory effort Nondistended abdomen , nontender Testicles nontender Penis with pink well-perfused coloration, glans very edematous, the foreskin also very edematous, but no evidence of paraphimosis No signs of cellulitis or satellite lesions, no significant discharge Extremities w/o deformity, no cyanosis, no edema No rashes or lesions. no focal neurologic deficits Appropriate mood and affect Course Vital Signs Vital signs: Vital Signs Temperature 36.5 C 10/13/23 12:07 Pulse 98 H 10/13/23 12:07 Respiratory Rate 17 10/13/23 12:07 Blood Pressure 151/79 H 10/13/23 12:07 Pulse Oximetry 98 10/13/23 12:07 Temperature 36.5 C 10/13/23 12:07 Temperature Source Oral 10/13/23 12:07 Pulse 98 H 10/13/23 12:07 Respiratory Rate 17 10/13/23 12:07 Respiratory Effort Normal, Non-Labored 10/13/23 12:12 Blood Pressure 151/79 H 10/13/23 12:07 Blood Pressure Position Supine 10/13/23 12:07 Pulse Oximetry 98 10/13/23 12:07 Oxygen Delivery Method Room Air 10/13/23 12:07 Oxygen Flow Rate 0 10/13/23 12:07 Medical Decision Making Emergent evaluation of penile swelling. Initial differential includes paraphimosis, phimosis, infectious etiology. No evidence of urinary retention or obstruction. Patient has been voiding normally all week and does his intermittent self cathing per usual. This appearance of the penis has been improving. On my evaluation the foreskin is pliable and does not appear to be in the paraphimosis position. It is very swollen and edematous and we feel his diagnosis is most likely balanoposthitis. I do not appreciate any signs of infection so I will treat with topical steroids. Patient is followed by urology here. I have placed a referral so that he can be followed up in the next 1 to 2 days for reevaluation. Return precautions and guidance regarding urinary retention discussed. Medical Records Medical records reviewed: Yes I reviewed the patient's medical records. 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 Vitreous floaters of left eye (Chronic 04/21/18) Testicular hypofunction (Chronic 07/09/12) Sleep apnea syndrome (Chronic 05/24/14) on CPAP 06/19 Reactive airway disease (Chronic 10/27/14) Prostatism (Chronic) S/P RESECTION 06/2013 Increased body mass index (Chronic) Hypotonic bladder (Chronic) W/ RETENTION 500CC Hyperlipidemia (Chronic) borderline Hip pain, bilateral (Chronic 10/20/17) Hematuria, unspecified (Chronic 07/20/12) Generalized osteoarthritis (Chronic) early DJD Gastroesophageal reflux disease (Chronic) Essential hypertension (Chronic 06/11/13) Elev transaminase/LDH (Chronic) ROSA Diverticulosis of colon without diverticulitis (Chronic 08/07/04) 10/13/15; PANDIVERTICULOSIS Disorder of vitamin B12 (Chronic 08/11/13) Chronic left shoulder pain (Chronic 10/20/17) Bilateral calf pain (Chronic 01/26/15) Annual physical exam (Acute 02/20/16) Medical History Cough Dysuria Bronchitis (01/14/13) Cough (08/10/15) Hematuria (07/20/12) Malaise (09/28/15) Otalgia (10/23/15) Sinus node dysfunction Shingles Cellulitis Left hamstring injury Otalgia, unspecified (10/23/15) Kidney stone (08/07/93) Cough (08/10/15) [place] albicans infection (10/27/14) Surgical History History of umbilical hernia repair Status post transurethral resection of prostate (07/04/15) Transurethral prostatectomy (07/04/15) [facility] Repair of umbilical hernia Colonoscopy - MAC (~2004) Family History Mother , 89 No problems noted. Father , 83 Essential hypertension AAA (abdominal aortic aneurysm) Sister Essential hypertension Heart disease Stroke Sister Essential hypertension Sister Essential hypertension Cancer uterine Son No problems noted. Maternal Grandfather , 83 No problems noted. Paternal Grandfather , 83 No problems noted. Maternal Grandmother , 84 No problems noted. Paternal Grandmother , 80 No problems noted. Social History Smoking/Tobacco Use Status: Never Second Hand Exposure: Yes Smoking risk assessment performed?: Yes Alcohol Intake: current Alcohol Intake frequency: a few times a month Alcohol type: beer and hard liquor Drug use: Never Substance use type: does not use Adopted: No Caregiver/Support person: No Foster care: No Household members: none Housing: house Number of Children: 1 number of grandchildren: 6 Communication Needs: None Education Level: vocational Do you need help understanding health information?: Never current occupation: retired Pets and animals: No Sexually active: No Do you think of yourself as: straight/heterosexual Current gender identity: male What is your relationship status?: How often do you talk on the phone with friends or family?: three or more times per week How often do you get together with friends or relatives?: three or more times per week How often do you attend christianity or buddhist services?: decline to answer Do you belong to any clubs or organized social groups?: no Panel score (0-1 are the most socially isolated patients): 1 What type of physical activity do you participate in: walking Duration: 15-30 minutes/day Frequency: 3-4 times per week Dhara/Zoroastrian: Non mormonism Special dhara needs: No Agree to transfusion: Yes Seatbelt use: always Helmet use: Yes Helmet use: always Drive intox or ride w/intox armor reconnaissance vehicle driver: No Working smoke detector in home: Yes Carbon monox detector in home: Yes Firearms in home: Yes Firearms unloaded and locked: Yes Do you feel safe at home: Yes Victim of physical abuse: No Victim of emotional abuse: No Victim of sexual abuse: No Discharge Plan Disposition Patient Disposition: Home Discharge Details Clinical Impression: Balanoposthitis Primary Care Provider: Olga Curtis ED Provider: Lois Raymundo Home Meds and New Rx's Prescriptions: New hydrocortisone 1 % cream 1 applic topical BID Qty: 28.4 0RF No Action aspirin [Aspirin Low-Strength] 81 MG tablet,chewable 1 tab PO DAILY Patient Comments: 09/14/13- Restarted 07/07/13 Pt is not taking for 2 weeks due to recent surgery. DM cholecalciferol (vitamin D3) 1,000 UNIT capsule 1 cap PO DAILY glucosam-chond hv-upsyxu-js ac 1 EACH capsule 1 cap PO BID vitamin T57-lemxa acid 1 EACH tablet, sublingual 2 ea Sublingual DAILY Qty: 100 magnesium oxide 400 MG tablet 800 mg PO DAILY ascorbic acid (vitamin C) [Vitamin C] 500 MG tablet,chewable 1,000 mg PO DAILY tamsulosin 0.4 mg capsule 0.4 mg PO HS Qty: 90 3RF cefuroxime axetil 250 mg tablet 250 mg PO DAILY Qty: 90 3RF Rx Instructions: chronic med for control of his UTI losartan [Cozaar] 100 mg tablet 100 mg PO QAM Qty: 90 4RF furosemide 40 mg tablet 40 mg PO DAILY Qty: 90 5RF Discharge Instructions Additional Instructions: apply cream twice daily please follow up with urology in 1-2 days continue to void and self cath per normal if you have pain, inability to urinate, please return to the ED Discharge Data Discharge Date/Time-TO BE ENTERED AT DEPARTURE: 10/13/23 13:52
== END 2023-10-13 13:52 | disposition home or self-care (01) ==
PROVIDERS: Emergency Provider Emergency Medicine; PCP Family Medicine
DX: N47.6 Balanoposthitis (principal); N31.2 Flaccid neuropathic bladder, not elsewhere classified
CPT/HCPCS: 51798; 99283

== ENCOUNTER → 2023-10-15 10:57 | Outpatient (BNVA) | payer MEDICARE, BC, SELFPAY | PROVIDERS: PCP Family Medicine; Referring Provider Family Medicine; Visit Provider Nurse Practitioner Gerontology | DX: N31.2 Flaccid neuropathic bladder, not elsewhere classified (principal); N47.2 Paraphimosis; Z87.440 Personal history of urinary (tract) infections | CPT/HCPCS: 99213 ==

== ENCOUNTER → 2023-10-28 08:05 | Outpatient (BNVA) | payer MEDICARE, BC, SELFPAY | PROVIDERS: PCP Family Medicine; Visit Provider Nurse Practitioner Gerontology | DX: N31.2 Flaccid neuropathic bladder, not elsewhere classified (principal); N47.2 Paraphimosis; Z87.440 Personal history of urinary (tract) infections | CPT/HCPCS: 99213 ==

== ENCOUNTER → 2023-12-04 13:09 | Outpatient (BNVA) | payer MEDICARE, BC, SELFPAY | PROVIDERS: PCP Family Medicine; Referring Provider Family Medicine; Visit Provider Nurse Practitioner Gerontology | DX: N31.2 Flaccid neuropathic bladder, not elsewhere classified (principal); N47.1 Phimosis; Z87.440 Personal history of urinary (tract) infections | CPT/HCPCS: 99213 ==

== ENCOUNTER → 2023-12-18 13:01 | Outpatient (BNVA) | payer MEDICARE, BC, SELFPAY | PROVIDERS: PCP Family Medicine; Referring Provider Family Medicine; Visit Provider Nurse Practitioner Gerontology | DX: N31.2 Flaccid neuropathic bladder, not elsewhere classified (principal); N47.1 Phimosis | CPT/HCPCS: 99213 ==

== ENCOUNTER → 2023-12-31 08:28 | Outpatient (BNVA) | payer MEDICARE, BC, SELFPAY | PROVIDERS: PCP Family Medicine; Referring Provider Family Medicine; Visit Provider Nurse Practitioner Gerontology | DX: N31.2 Flaccid neuropathic bladder, not elsewhere classified (principal); N47.1 Phimosis | CPT/HCPCS: 99213 ==

== ENCOUNTER → 2024-02-16 11:04 | Outpatient (BNVA) | payer MEDICARE, BC, SELFPAY | PROVIDERS: PCP Family Medicine; Visit Provider Internal Medicine Cardiovascular Disease | DX: I10 Essential (primary) hypertension (principal); R06.02 Shortness of breath | CPT/HCPCS: 99213 ==

== ENCOUNTER → 2024-04-05 15:23 | Outpatient (BNVA) | payer MEDICARE, BC, SELFPAY | PROVIDERS: PCP Family Medicine; Visit Provider Nurse Practitioner Gerontology | DX: N39.0 Urinary tract infection, site not specified (principal); N31.2 Flaccid neuropathic bladder, not elsewhere classified | CPT/HCPCS: 99213 ==

== ENCOUNTER → 2024-04-16 08:42 | Outpatient (BNVA) | payer MEDICARE, BC, SELFPAY | PROVIDERS: PCP Family Medicine; Referring Provider Family Medicine | DX: M70.62 Trochanteric bursitis, left hip (principal); M70.61 Trochanteric bursitis, right hip | CPT/HCPCS: 20610; J1010 ==

== ENCOUNTER 2024-09-24 00:53 | Outpatient (CLI) | payer MEDICARE, BC, SELFPAY ==
[2024-09-24 10:34] LABS: ALT 30 U/L (16-63); AST 27 U/L (15-37); Albumin 3.8 g/dL (3.4-5.0); Alkaline Phosphatase 107 U/L (46-116); Anion Gap 9.9 mmol/L (3-11); BUN 15 mg/dL (7-18); Bilirubin, Total 1.09 mg/dL (0.2-1.0); CO2 30.1 mmol/L (21.0-32.0); CREATININE 1.1 mg/dL (0.70-1.30); Calcium 9.1 mg/dL (8.5-10.1); Calculated LDL 171 mg/dL (<100); Chloride 103 mmol/L (98-107); Cholesterol 235 mg/dL (<200); Estimated GFR 70.88 (mL/min/1.73m2); Glucose 115 mg/dL (74-106); HDL Cholesterol 46 mg/dL (40-60); Potassium 4.2 mmol/L (3.5-5.1); Sodium 143 mmol/L (136-145); Total Protein 7.5 g/dL (6.4-8.2); Triglyceride 94 mg/dL (<150)
== END 2024-09-24 00:54 | disposition home or self-care (01) ==
LOC: LBO 00:53
PROVIDERS: PCP Family Medicine; Visit Provider Family Medicine
DX: I10 Essential (primary) hypertension (principal)
CPT/HCPCS: 36415; 80053; 80061

== ENCOUNTER 2024-09-28 09:05 | Outpatient (CLI) | payer MEDICARE, BC, SELFPAY ==
[2024-09-28 13:21] LABS: Hemoglobin A1C 5.8 % (<5.7)
[2024-09-28 13:32] LABS: ALT 29 U/L (16-63); AST 24 U/L (15-37); Albumin 3.6 g/dL (3.4-5.0); Alkaline Phosphatase 87 U/L (46-116); BUN 17 mg/dL (7-18); Calcium 9.1 mg/dL (8.5-10.1); Chloride 105 mmol/L (98-107); Estimated GFR 79.47 (mL/min/1.73m2); Glucose 142 mg/dL (74-106); Potassium 3.8 mmol/L (3.5-5.1); Sodium 141 mmol/L (136-145); TSH (W/Ref FT4) 1.49 uIU/mL (0.36-3.74); Total Protein 7.1 g/dL (6.4-8.2); Vitamin B12 699 pg/mL (193-986)
[2024-09-28 20:16] LABS: Hepatitis C Ab w Rflx HCV PCR Negative (Negative)
== END 2024-09-28 09:06 | disposition home or self-care (01) ==
LOC: LOS 09:05
PROVIDERS: PCP Family Medicine; Referring Provider Family Medicine; Visit Provider Family Medicine
DX: Z11.59 Encounter for screening for other viral diseases (principal); I10 Essential (primary) hypertension; E53.8 Deficiency of other specified B group vitamins; E11.9 Type 2 diabetes mellitus without complications; E03.9 Hypothyroidism, unspecified
CPT/HCPCS: 36415; 80053; 86803; 82607; 83036; 84443

== ENCOUNTER → 2024-10-04 15:26 | Outpatient (BNVA) | payer MEDICARE, BC, SELFPAY | PROVIDERS: PCP Family Medicine; Visit Provider Nurse Practitioner Gerontology | DX: Z87.440 Personal history of urinary (tract) infections (principal); N31.2 Flaccid neuropathic bladder, not elsewhere classified | CPT/HCPCS: 99213 ==

== ENCOUNTER 2025-02-15 13:45 | Outpatient (CLI) | payer MEDICARE, BC, SELFPAY ==
--- NOTE | 2025-02-15 13:45 | RT.EKG_ITS ---
APPROVED REPORT Exam: Resting ECG Reason for Exam: sick sinus syndrome Patient Location: O HR:80 bpm ECG Measurements Heart Rate 80 AXIS NM 254 P -12 QRSd 113 QRS -48 QT 362 T 75 QTc 418 Conclusion Sinus rhythm...normal P axis, V-rate 50- 99 Prolonged NM interval...NM >220, V-rate 50- 90 Incomplete left bundle branch block...QRSd>110mS, terminal axis(-90,-1) Low voltage, precordial leads...precordial leads <1.0mV Left axis
== END 2025-02-15 13:46 | disposition home or self-care (01) ==
LOC: DI.CARD 13:46
PROVIDERS: PCP Family Medicine; Visit Provider Internal Medicine Cardiovascular Disease
DX: I49.5 Sick sinus syndrome (principal); I44.7 Left bundle-branch block, unspecified; I10 Essential (primary) hypertension; R06.02 Shortness of breath
CPT/HCPCS: 93010

== ENCOUNTER → 2025-02-15 13:55 | Outpatient (BNVA) | payer MEDICARE, BC, SELFPAY | PROVIDERS: PCP Family Medicine; Visit Provider Internal Medicine Cardiovascular Disease | DX: R06.02 Shortness of breath (principal); I10 Essential (primary) hypertension; I49.5 Sick sinus syndrome | CPT/HCPCS: 99213; 93005 ==

== ENCOUNTER → 2025-04-04 15:35 | Outpatient (BNVA) | payer MEDICARE, BC, SELFPAY | PROVIDERS: PCP Family Medicine; Visit Provider Nurse Practitioner Gerontology | DX: N31.2 Flaccid neuropathic bladder, not elsewhere classified (principal); N39.0 Urinary tract infection, site not specified; B96.5 Pseudomonas (aeruginosa) (mallei) (pseudomallei) as the cause of diseases classified elsewhere | CPT/HCPCS: 99213; 81002 ==

== ENCOUNTER 2025-04-04 16:12 | Outpatient (REF) | payer MEDICARE, BC, SELFPAY | END 2025-04-04 16:13 | disposition home or self-care (01) | LOC: LBN 16:12 | PROVIDERS: PCP Family Medicine; Visit Provider Nurse Practitioner Gerontology | DX: R31.9 Hematuria, unspecified (principal) | CPT/HCPCS: 87077; 87086; 87186 ==

== ENCOUNTER 2025-04-12 17:16 | Outpatient (REF) | payer MEDICARE, BC, SELFPAY | END 2025-04-12 17:17 | disposition home or self-care (01) | LOC: LBN 17:16 | PROVIDERS: PCP Family Medicine; Visit Provider Registered Nurse | DX: N39.0 Urinary tract infection, site not specified (principal) | CPT/HCPCS: 87077; 87086; 87186 ==

== ENCOUNTER 2025-06-14 16:54 | Outpatient (REF) | payer MEDICARE, BC, SELFPAY ==
[2025-06-14 21:10] LABS: Glucose Negative (Negative)
[2025-06-14 21:22] LABS: C & S Indicated? No
== END 2025-06-14 16:55 | disposition home or self-care (01) ==
LOC: LBN 16:54
PROVIDERS: PCP Family Medicine; Visit Provider Nurse Practitioner Family
DX: R39.9 Unspecified symptoms and signs involving the genitourinary system (principal)
CPT/HCPCS: 81003; 81015